=== PATIENT | female | born 1940 | race Caucasian/White ===

== ENCOUNTER → 2017-11-20 | Outpatient (CLI) | payer MEDICARE, OTHER ==
[~2017-11-20] MED LIST: ACET325; ACET325 PO; ADCIRCA PO; ADCIRCA20 MG PO; ALBU90OI INH; ALBU90OI6; ALPR.5 PO; ALPR1 PO; AMLO10 PO; ASPI325; AZIT500 PO; Acetaminophen-1 EAC1 PO; BENZ100A PO; BOSENTAN PO; BUPR150ER PO; CODACE30 PO; FLUC150A PO; FLUT220OIA INH; FLUT44OIA INH; FURO40 PO; Flovent 220 Ora12 GM INH; GUAI600T33 PO; LEVO750; LEVO750 PO; LEVSOD100 PO; LEVSOD88 PO; LORA1 PO; MULVITMINE PO; OMEP20ER PO; ONDA8 PO; Omeprazole20 M1 PO; POTA10T PO; POTA20PAC PO; POTCHL20ER PO; SERT100 PO; SIMV40 PO; SPIR25 PO; TADA10TA PO; TIOT18 INH; TRACLEER PO; WARF3 PO; WARF4 PO; ZOLP5; Zofran4 MG PO; [UNRECOGNIZED DRUG - OTHER] PO
== END ==
LOC: PLD → LAB SHORT
DX: D48.5 Neoplasm of uncertain behavior of skin (principal)
CPT/HCPCS: 88305

== ENCOUNTER 2018-01-09 11:00 | Emergency (ER) | payer MEDICARE, OTHER ==
[~2018-01-09] VITALS: Ht 157.5 cm; Wt 68.0 kg
[~2018-01-09 11:00] MED LIST changes: -ACET325 PO; -ALBU90OI INH; -ALPR1 PO; -AZIT500 PO; -Acetaminophen-1 EAC1 PO; -BENZ100A PO; -BUPR150ER PO; -Flovent 220 Ora12 GM INH; -GUAI600T33 PO; -Omeprazole20 M1 PO; -POTCHL20ER PO
[2018-01-09] MEDS ORDERED: LEVSOD88 PO (11:16)
[2018-01-09] MEDS ORDERED: SPIR25 PO (11:17)
[2018-01-09] MEDS ORDERED: POTCHL20ER PO (11:18)
[2018-01-09] MEDS ORDERED: AMLO10 PO (11:18)
[2018-01-09] MEDS ORDERED: SERT100 PO (11:19)
[2018-01-09] MEDS ORDERED: FURO40 PO (11:19)
[2018-01-09] MEDS ORDERED: Omeprazole20 M1 PO (11:20)
[2018-01-09] MEDS ORDERED: ONDA8 PO (11:20)
[2018-01-09] MEDS ORDERED: BUPR150ER PO (11:21)
[2018-01-09] MEDS ORDERED: WARF3 PO (11:21)
[2018-01-09] MEDS ORDERED: SIMV40 PO (11:22)
[2018-01-09] MEDS ORDERED: BENZ100A PO (11:22)
[2018-01-09] MEDS ORDERED: ADCIRCA20 MG PO (11:23)
[2018-01-09] MEDS ORDERED: TRACLEER PO (11:23)
[2018-01-09] MEDS ORDERED: Flovent 220 Ora12 GM INH (11:24)
[2018-01-09] MEDS ORDERED: ALBU90OI INH (11:24)
[2018-01-09 13:18] LABS: Influenza A Negative (NEGATIVE); Influenza B Negative (NEGATIVE)
[2018-01-09 13:49] LABS: Source, Urine Voided
[2018-01-09 13:56] LABS: BASOPHILS ABSOLUTE AUTO 0.03 K/mm3 (0.00-0.23); BASOPHILS PERCENT AUTO 0 % (0-2); EOSINOPHILS PERCENT AUTO 0 % (0-6); Hematocrit 36.4 % (33.0-51.0); Hemoglobin 11.3 g/dL (11.5-16.0); IMMATURE GRAN ABSOLUTE AUTO 0.03 K/mm3 (0.00-0.10); IMMATURE GRAN PERCENT AUTO 0 % (0-1); LYMPHOCYTES ABSOLUTE AUTO 0.58 K/mm3 (0.84-5.20); LYMPHOCYTES PERCENT AUTO 6 % (21-46); MONOCYTES ABSOLUTE AUTO 0.72 K/mm3 (0.16-1.47); MONOCYTES PERCENT AUTO 8 % (4-13); Mean Corpuscular HGB 27.7 pg (26.0-34.0); Mean Corpuscular Volume 89 fL (80-100); Mean Platelet Volume 10.2 fL (9.1-12.4); NEUTROPHILS ABSOLUTE AUTO 8.21 K/mm3 (1.96-9.15); NEUTROPHILS PERCENT AUTO 86 % (41-73); Platelet Count 212 K/mm3 (150-400); RDW Coefficient Variation 14.2 % (11.7-14.2); RDW Standard Deviation 46.7 fL (35.1-46.3); Red Blood Cell Count 4.08 M/mm3 (3.80-5.20); White Blood Cell Count 9.57 K/mm3 (4.00-11.30)
[2018-01-09 14:03] LABS: Appearance, Urine Clear (Clear); Bilirubin, Urine Neg (Neg); Blood, Urine 1+ (Neg); Color, Urine Yellow (P-Yellow); Glucose Qualitative, Urine Neg (Neg); Ketones, Urine Neg (Neg); Leukocyte Esterase, Urine 1+ (Neg); Nitrite, Urine Neg (Neg); Protein, Urine 1+ (Neg); Urobilinogen, Urine NORM (Normal)
[2018-01-09 14:04] LABS: Alanine Aminotransfer (ALT/SGP 14 U/L (12-78); Albumin/Globulin Ratio 0.8 (0.8-1.8); Alk Phos 87 U/L (50-136); Anion Gap 10 mmol/L (6-16); Aspartate Aminotrans (AST/SGOT 18 U/L (12-37); Bilirubin, Total 0.8 mg/dL (0.1-1.0); Blood Urea Nitrogen 12 mg/dL (8-24); Bun/Creatinine Ratio 14.3 (12.0-20.0); CO2, Blood 22 mmol/L (21-32); Calcium, Blood 8.9 mg/dL (8.5-10.1); Chloride, Blood 108 mmol/L (98-108); Creatinine, Blood 0.84 mg/dL (0.40-1.00); Glomerular Filtration Rate >60 (60-); Glucose, Blood 113 mg/dL (70-99); Potassium, Blood 3.5 mmol/L (3.5-5.5); Sodium, Blood 140 mmol/L (136-145)
[2018-01-09 14:12] LABS: Bacteria Few /hpf; Squamous Epithelial Cells Few /hpf (Few)
[2018-01-09 14:13] LABS: Transitional Epithelial Cells Few /hpf (0-Rare)
[2018-10-05] MEDS ORDERED: WARF4 PO (16:01)
[2018-10-05] MEDS ORDERED: Acetaminophen-1 EAC1 PO (16:05)
[2018-10-05] MEDS ORDERED: ALPR1 PO (16:06)
[2018-10-07] MEDS ORDERED: ACET325 PO (12:42)
[2018-10-07] MEDS ORDERED: GUAI600T33 PO (12:42)
[2018-10-07] MEDS ORDERED: AZIT500 PO (12:43)
== END 2018-01-09 15:20 | disposition home or self-care (01) ==
LOC: ER 11:00
PROVIDERS: Nurse Practitioner Family
DX: J06.9 Acute upper respiratory infection, unspecified (principal); Z79.899 Other long term (current) drug therapy; Z79.01 Long term (current) use of anticoagulants; I27.0 Primary pulmonary hypertension
CPT/HCPCS: 71046; 80053; 81001; 85025; 87086; 87804; 94640; 96361; 96374; 99283; J2405; J7030

== ENCOUNTER → 2018-02-18 | Outpatient (CLI) | payer MEDICARE, OTHER ==
[~2018-02-18] MED LIST changes: +ALBU90OI INH; +BENZ100A PO; +BUPR150ER PO; +Flovent 220 Ora12 GM INH; +Omeprazole20 M1 PO; +POTCHL20ER PO
[2018-02-18 12:15] LABS: BASOPHILS ABSOLUTE AUTO 0.06 K/mm3 (0.00-0.23); BASOPHILS PERCENT AUTO 1 % (0-2); EOSINOPHILS ABSOLUTE AUTO 0.07 K/mm3 (0.00-0.68); EOSINOPHILS PERCENT AUTO 1 % (0-6); Hematocrit 38.1 % (33.0-51.0); Hemoglobin 12.1 g/dL (11.5-16.0); IMMATURE GRAN ABSOLUTE AUTO 0.02 K/mm3 (0.00-0.10); IMMATURE GRAN PERCENT AUTO 0 % (0-1); LYMPHOCYTES ABSOLUTE AUTO 1.19 K/mm3 (0.84-5.20); LYMPHOCYTES PERCENT AUTO 15 % (21-46); MONOCYTES ABSOLUTE AUTO 0.41 K/mm3 (0.16-1.47); MONOCYTES PERCENT AUTO 5 % (4-13); Mean Corpuscular HGB 27.3 pg (26.0-34.0); Mean Corpuscular HGB Conc 31.8 g/dL (31.5-36.5); Mean Corpuscular Volume 86 fL (80-100); Mean Platelet Volume 9.8 fL (9.1-12.4); NEUTROPHILS ABSOLUTE AUTO 6.06 K/mm3 (1.96-9.15); NEUTROPHILS PERCENT AUTO 78 % (41-73); Platelet Count 271 K/mm3 (150-400); RDW Coefficient Variation 14.5 % (11.7-14.2); RDW Standard Deviation 45.6 fL (35.1-46.3); Red Blood Cell Count 4.43 M/mm3 (3.80-5.20); White Blood Cell Count 7.81 K/mm3 (4.00-11.30)
[2018-02-18 12:25] LABS: Alanine Aminotransfer (ALT/SGP 22 U/L (12-78); Albumin/Globulin Ratio 1.2 (0.8-1.8); Alk Phos 95 U/L (40-126); Anion Gap 14 mmol/L (6-16); Aspartate Aminotrans (AST/SGOT 21 U/L (12-37); Bilirubin, Total 0.5 mg/dL (0.1-1.0); Blood Urea Nitrogen 15 mg/dL (8-24); Bun/Creatinine Ratio 14.7 (12.0-20.0); CO2, Blood 23 mmol/L (21-32); Calcium, Blood 8.9 mg/dL (8.5-10.1); Chloride, Blood 107 mmol/L (98-108); Creatinine, Blood 1.02 mg/dL (0.40-1.00); Globulin, Blood 3.3 g/dL (2.2-4.0); Glomerular Filtration Rate 53 (60-); Glucose, Blood 100 mg/dL (70-99); Potassium, Blood 4.4 mmol/L (3.5-5.5); Sodium, Blood 144 mmol/L (136-145); Total Protein, Blood 7.3 g/dL (6.4-8.2)
[2018-02-18 12:27] LABS: Troponin I <0.017 ng/mL (0.000-0.040)
== END | disposition home or self-care (01) ==
LOC: LAB EV 12:07 → LAB SHORT 12:07
PROVIDERS: Physician Assistant
DX: R07.9 Chest pain, unspecified (principal)
CPT/HCPCS: 80053; 83690; 83880; 84484; 85025

== ENCOUNTER 2018-07-13 08:59 | Day surgery (SDC) | payer MEDICARE, OTHER | END 2018-07-13 13:35 | disposition home or self-care (01) | LOC: CT 08:59 | DX: C34.02 Malignant neoplasm of left main bronchus (principal); J45.909 Unspecified asthma, uncomplicated | CPT/HCPCS: 32405; 77012 ==

== ENCOUNTER 2019-01-18 12:49 | Inpatient (IN) | payer MEDICARE, OTHER ==
[~2019-01-18] VITALS: Ht 157.5 cm; Wt 65.9 kg
[~2019-01-18 12:49] MED LIST changes: +ACET325 PO; +ALPR1 PO; +AZIT500 PO; +Acetaminophen-1 EAC1 PO; +GUAI600T33 PO
[2019-01-18] MEDS ORDERED: PENVK500 PO (13:38)
[2019-01-18 13:40] LABS: BASOPHILS ABSOLUTE AUTO 0.03 K/mm3 (0.00-0.23); BASOPHILS PERCENT AUTO 0 % (0-2); EOSINOPHILS ABSOLUTE AUTO 0.03 K/mm3 (0.00-0.68); EOSINOPHILS PERCENT AUTO 0 % (0-6); Hematocrit 35.9 % (33.0-51.0); Hemoglobin 11.1 g/dL (11.5-16.0); IMMATURE GRAN ABSOLUTE AUTO 0.05 K/mm3 (0.00-0.10); IMMATURE GRAN PERCENT AUTO 1 % (0-1); LYMPHOCYTES ABSOLUTE AUTO 0.69 K/mm3 (0.84-5.20); LYMPHOCYTES PERCENT AUTO 6 % (21-46); MONOCYTES ABSOLUTE AUTO 0.65 K/mm3 (0.16-1.47); MONOCYTES PERCENT AUTO 6 % (4-13); Mean Corpuscular HGB 27.6 pg (26.0-34.0); Mean Corpuscular HGB Conc 30.9 g/dL (31.5-36.5); Mean Corpuscular Volume 89 fL (80-100); Mean Platelet Volume 10.2 fL (9.1-12.4); NEUTROPHILS ABSOLUTE AUTO 9.32 K/mm3 (1.96-9.15); NEUTROPHILS PERCENT AUTO 87 % (41-73); Platelet Count 250 K/mm3 (150-400); RDW Coefficient Variation 14.5 % (11.7-14.2); RDW Standard Deviation 47.6 fL (35.1-46.3); Red Blood Cell Count 4.02 M/mm3 (3.80-5.20); White Blood Cell Count 10.77 K/mm3 (4.00-11.30)
[2019-01-18] MEDS ORDERED: POTCHL20ER PO (13:40)
[2019-01-18 13:51] LABS: Alanine Aminotransfer (ALT/SGP 16 U/L (12-78); Albumin, Blood 3.1 g/dL (3.4-5.0); Albumin/Globulin Ratio 0.7 (0.8-1.8); Alk Phos 98 U/L (50-136); Anion Gap 8 mmol/L (6-16); Aspartate Aminotrans (AST/SGOT 18 U/L (12-37); Bilirubin, Total 0.4 mg/dL (0.1-1.0); Blood Urea Nitrogen 13 mg/dL (8-24); Bun/Creatinine Ratio 14.2 (12.0-20.0); CO2, Blood 24 mmol/L (21-32); Calcium, Blood 8.8 mg/dL (8.5-10.1); Chloride, Blood 110 mmol/L (98-108); Creatinine, Blood 0.91 mg/dL (0.40-1.00); Globulin, Blood 4.2 g/dL (2.2-4.0); Glomerular Filtration Rate >60 (60-); Glucose, Blood 104 mg/dL (70-99); Sodium, Blood 142 mmol/L (136-145); Total Protein, Blood 7.3 g/dL (6.4-8.2); Troponin I <0.015 ng/mL (0.000-0.040)
[2019-01-18 14:44] LABS: International Normalized Ratio 2.38; Prothrombin Time Results 23.3 Sec (9.7-11.5)
[2019-01-18 15:01] LABS: Influenza A Negative (NEGATIVE); Influenza B Negative (NEGATIVE)
[2019-01-18] MEDS ORDERED: ALPR1 PO (18:00)
--- NOTE | 2019-01-18 18:00 | NUR ---
PATIENT ARRIVED TO FLOOR VIA GURNEY, ABLE TO TRANSFER WITH SBA. 3LO2 TO MAINTAIN SATS. VERY ANXIOUS AND NAUSEATED, WILL MEDICATE PER EMAR. REPORTS 4/10 GENERALIZED PAIN. B/P ELEVATED, WILL GIVEN DOSE OF ALDACTONE AND REASSESS. PATIENT A/OX4, COOPERATIVE WITH CARE. ORIENTED TO ROOM, USE OF CALL LIGHT. 20G IV TO L FA WNL AND NS BOLUS INFUSING.
[2019-01-19 05:28] LABS: BASOPHILS ABSOLUTE AUTO 0.03 K/mm3 (0.00-0.23); BASOPHILS PERCENT AUTO 0 % (0-2); EOSINOPHILS PERCENT AUTO 1 % (0-6); Hematocrit 30.6 % (33.0-51.0); Hemoglobin 9.5 g/dL (11.5-16.0); IMMATURE GRAN ABSOLUTE AUTO 0.02 K/mm3 (0.00-0.10); IMMATURE GRAN PERCENT AUTO 0 % (0-1); LYMPHOCYTES ABSOLUTE AUTO 0.57 K/mm3 (0.84-5.20); LYMPHOCYTES PERCENT AUTO 8 % (21-46); MONOCYTES ABSOLUTE AUTO 0.65 K/mm3 (0.16-1.47); MONOCYTES PERCENT AUTO 9 % (4-13); Mean Corpuscular HGB 27.9 pg (26.0-34.0); Mean Corpuscular Volume 90 fL (80-100); Mean Platelet Volume 10.4 fL (9.1-12.4); NEUTROPHILS ABSOLUTE AUTO 5.64 K/mm3 (1.96-9.15); NEUTROPHILS PERCENT AUTO 81 % (41-73); Platelet Count 208 K/mm3 (150-400); RDW Coefficient Variation 14.3 % (11.7-14.2); RDW Standard Deviation 47.7 fL (35.1-46.3); White Blood Cell Count 7.01 K/mm3 (4.00-11.30)
[2019-01-19 05:46] LABS: International Normalized Ratio 2.51; Prothrombin Time Results 24.5 Sec (9.7-11.5)
--- NOTE | 2019-01-19 05:46 | NUR ---
SHIFT SUMMARY PT IS A 78 Y/O FEMALE, ADMITTED FOR PNEUMONIA. SHE IS A&O X 4. THE PT IS ON 3L OF O2 VIA NC, WHICH IS HER NORMAL HOME DOSE. SHE REPORTED GENERALIZED PAIN AND NAUSEA AND WAS MEDICATE X1 WITH PRN TYLENOL, ZOFRAN AND COMPAZINE. THE PT SLEPT OFF AND ON THROUGH THE NIGHT. VITALS REMAINED STABLE. NO OTHER ACUTE CHANGES IN PT CONDITION NOTED. WILL CONTINUE TO MONITOR AND TREAT PER EMAR.
[2019-01-19 06:05] LABS: Anion Gap 6 mmol/L (6-16); Blood Urea Nitrogen 11 mg/dL (8-24); Bun/Creatinine Ratio 12.7 (12.0-20.0); CO2, Blood 25 mmol/L (21-32); Calcium, Blood 8.4 mg/dL (8.5-10.1); Chloride, Blood 111 mmol/L (98-108); Creatinine, Blood 0.86 mg/dL (0.40-1.00); Glomerular Filtration Rate >60 (60-); Glucose, Blood 97 mg/dL (70-99); Potassium, Blood 3.4 mmol/L (3.5-5.5); Sodium, Blood 142 mmol/L (136-145)
--- NOTE | 2019-01-19 18:35 | NUR ---
PATIENT A/OX4, [place] [facility] [place] REPORTS FEELING BETTER THIS EVENING. 20G IV TO R FA WNL AND SL BETWEEN ABX. TOLERATING SMALL AMOUNT OF LOW NA+ DIET. MEDICATING WITH ZOFRAN TO TREAT NAUSEA. ANXIOUS AT TIMES, ATIVAN GIVEN X2 THIS SHIFT TO TREAT. VSS. LUNGS CLEAR/DIM, 3LO2 TO MAINTAIN SATS.
[2019-01-20 04:51] LABS: International Normalized Ratio 3.43; Prothrombin Time Results 32.5 Sec (9.7-11.5)
--- NOTE | 2019-01-20 06:38 | NUR ---
SHIFT SUMMARY PT IS A 78 Y/O FEMALE, ADMITTED FOR PNEUMONIA. SHE REPORTED THAT SHE IS FEELING BETTER COMPARED TO THE PREVIOUS NIGHT, WITH NO COMPLAINTS OF PAIN OR NAUSEA, BUT SHE DID HAVE A COUGH DURING THE NIGHT THAT WAS TREATED WITH SCHEDULED COUGH MEDICATION. SHE SLEPT OFF AND ON THROUGH THE NIGHT. VITALS REMAINED STABLE. NO OTHER ACUTE CHANGES IN PT CONDITION NOTED. WILL CONTINUE TO MONITOR AND TREAT PER EMAR.
[2019-01-20] MEDS ORDERED: WARF3 PO (10:04)
[2019-01-20] MEDS ORDERED: HYDROCODONE-CHLO5 ML PO (10:07)
[2019-01-20] MEDS ORDERED: AZIT500 PO (10:08)
[2019-01-20] MEDS ORDERED: SENN187 PO (10:08)
[2019-01-20] MEDS ORDERED: SACC250C PO (10:08)
[2019-01-20] MEDS ORDERED: CEFU500T30 PO (10:09)
== END 2019-01-20 11:55 | disposition home or self-care (01) | DRG 194 ==
LOC: ER 12:49 → MEDS 16:56
PROVIDERS: Emergency Medicine; Internal Medicine; Physician Assistant; ADMIT Internal Medicine
DX: J18.1 Lobar pneumonia, unspecified organism (principal); C34.32 Malignant neoplasm of lower lobe, left bronchus or lung; R04.2 Hemoptysis; E44.0 Moderate protein-calorie malnutrition; E87.6 Hypokalemia; I27.20 Pulmonary hypertension, unspecified; Z79.01 Long term (current) use of anticoagulants; E03.9 Hypothyroidism, unspecified; F32.9 Major depressive disorder, single episode, unspecified; F41.9 Anxiety disorder, unspecified; E78.5 Hyperlipidemia, unspecified; I10 Essential (primary) hypertension; K21.9 Gastro-esophageal reflux disease without esophagitis; Z99.81 Dependence on supplemental oxygen; Z66 Do not resuscitate; Z68.24 Body mass index [BMI] 24.0-24.9, adult
CPT/HCPCS: 36415; 71046; 71250; 80048; 80053; 83605; 84145; 84484; 85025; 85610; 87040; 87804; 93005; 93010; 94640; 94760; 96365; 96367; 96375; 99285-25; J0456; J0696; J0780; J2405; J7030; J7050; J7120

== ENCOUNTER 2019-07-09 18:43 | Observation (INO) | payer MEDICARE, OTHER ==
[~2019-07-09] VITALS: Ht 160 cm; Wt 64.0 kg
[~2019-07-09 18:43] MED LIST changes: +CEFU500T30 PO; +Coumadin4 MG PO; +HYDROCODONE-CHLO5 ML PO; +PENVK500 PO; +SACC250C PO; +SENN187 PO; +Synthroid88 MCG PO
[2019-07-09 19:55] LABS: BASOPHILS ABSOLUTE AUTO 0.05 K/mm3 (0.00-0.23); BASOPHILS PERCENT AUTO 1 % (0-2); EOSINOPHILS ABSOLUTE AUTO 0.09 K/mm3 (0.00-0.68); EOSINOPHILS PERCENT AUTO 1 % (0-6); Hematocrit 35.2 % (33.0-51.0); Hemoglobin 10.8 g/dL (11.5-16.0); IMMATURE GRAN ABSOLUTE AUTO 0.03 K/mm3 (0.00-0.10); IMMATURE GRAN PERCENT AUTO 0 % (0-1); LYMPHOCYTES ABSOLUTE AUTO 1.01 K/mm3 (0.84-5.20); LYMPHOCYTES PERCENT AUTO 12 % (21-46); MONOCYTES PERCENT AUTO 7 % (4-13); Mean Corpuscular HGB 25.5 pg (26.0-34.0); Mean Corpuscular HGB Conc 30.7 g/dL (31.5-36.5); Mean Platelet Volume 10.4 fL (9.1-12.4); NEUTROPHILS ABSOLUTE AUTO 6.66 K/mm3 (1.96-9.15); NEUTROPHILS PERCENT AUTO 79 % (41-73); Platelet Count 289 K/mm3 (150-400); RDW Coefficient Variation 14.9 % (11.7-14.2); RDW Standard Deviation 45.3 fL (35.1-46.3); Red Blood Cell Count 4.23 M/mm3 (3.80-5.20); White Blood Cell Count 8.44 K/mm3 (4.00-11.30)
[2019-07-09 19:59] LABS: Mean Corpuscular Volume 83 fL (80-100)
[2019-07-09 21:17] LABS: Alanine Aminotransfer (ALT/SGP 13 U/L (12-78); Albumin, Blood 3.2 g/dL (3.4-5.0); Albumin/Globulin Ratio 0.6 (0.8-1.8); Alk Phos 81 U/L (50-136); Anion Gap 6 mmol/L (6-16); Aspartate Aminotrans (AST/SGOT 24 U/L (12-37); Bilirubin, Total 0.3 mg/dL (0.1-1.0); Blood Urea Nitrogen 10 mg/dL (8-24); Bun/Creatinine Ratio 9.1 (12.0-20.0); CO2, Blood 22 mmol/L (21-32); Calcium, Blood 9.2 mg/dL (8.5-10.1); Chloride, Blood 113 mmol/L (98-108); Globulin, Blood 5.1 g/dL (2.2-4.0); Glomerular Filtration Rate 51 (60-); Glucose, Blood 98 mg/dL (70-99); Potassium, Blood 4.5 mmol/L (3.5-5.5); Sodium, Blood 141 mmol/L (136-145); Total Protein, Blood 8.3 g/dL (6.4-8.2); Troponin I <0.015 ng/mL (0.000-0.040)
[2019-07-09 21:21] LABS: International Normalized Ratio 1.13; Prothrombin Time Results 11.8 Sec (9.7-11.5)
[2019-07-09 21:40] LABS: Source, Urine Clean Catch
[2019-07-09 21:44] LABS: Bilirubin, Urine Neg (Neg); Blood, Urine Neg (Neg); Glucose Qualitative, Urine Neg (Neg); Ketones, Urine Neg (Neg); Leukocyte Esterase, Urine Neg (Neg); Nitrite, Urine Neg (Neg); Protein, Urine Neg (Neg); Urobilinogen, Urine NORM (Normal)
[2019-07-09 21:47] LABS: Appearance, Urine Clear (Clear); Color, Urine Yellow (P-Yellow)
[2019-07-09] MEDS ORDERED: TRACLEER PO (21:59)
[2019-07-09] MEDS ORDERED: TAGRISSO80 MG PO (21:59)
[2019-07-09] MEDS ORDERED: FLUTICASONE-SA1 EAC4 INH (22:00)
[2019-07-09] MEDS ORDERED: Simvastatin40 MG PO (22:01)
[2019-07-09] MEDS ORDERED: ADCIRCA20 MG PO (22:02)
[2019-07-09] MEDS ORDERED: ONDA4 PO (22:03)
[2019-07-09] MEDS ORDERED: PRENATAL TABLE1 EAC2 PO (22:03)
--- NOTE | 2019-07-09 23:20 | NUR ---
Transfer report from [facility] GENERAL MAINTENANCE HELPER on PT with reported bilat stage 4 lung CA who has 10 days Nausea and diarrhea. CO chest and abd pain. PT concerned about pneumonia, hx of multiple pneumonia. Pulmonary hypertension and will be admitted on Tele obs status. Await admission
[2019-07-10] MEDS ORDERED: Alprazolam1 MG PO (00:31)
[2019-07-10] MEDS ORDERED: OMEPRAZOLE MAGN20 M1 PO (00:33)
[2019-07-10] MEDS ORDERED: Tessalon Perle100 MG PO (00:35)
[2019-07-10] MEDS ORDERED: ACET500 PO (00:38)
[2019-07-10] MEDS ORDERED: PROBIOTIC1 EAC6 PO (00:40)
[2019-07-10 01:28] LABS: BASOPHILS ABSOLUTE AUTO 0.05 K/mm3 (0.00-0.23); BASOPHILS PERCENT AUTO 1 % (0-2); EOSINOPHILS ABSOLUTE AUTO 0.04 K/mm3 (0.00-0.68); EOSINOPHILS PERCENT AUTO 1 % (0-6); Hemoglobin 9.7 g/dL (11.5-16.0); IMMATURE GRAN ABSOLUTE AUTO 0.02 K/mm3 (0.00-0.10); IMMATURE GRAN PERCENT AUTO 0 % (0-1); LYMPHOCYTES ABSOLUTE AUTO 0.78 K/mm3 (0.84-5.20); LYMPHOCYTES PERCENT AUTO 10 % (21-46); MONOCYTES PERCENT AUTO 8 % (4-13); Mean Corpuscular HGB 26.1 pg (26.0-34.0); Mean Corpuscular HGB Conc 31.3 g/dL (31.5-36.5); Mean Corpuscular Volume 83 fL (80-100); Mean Platelet Volume 10.1 fL (9.1-12.4); NEUTROPHILS ABSOLUTE AUTO 6.32 K/mm3 (1.96-9.15); NEUTROPHILS PERCENT AUTO 81 % (41-73); Platelet Count 254 K/mm3 (150-400); RDW Coefficient Variation 14.8 % (11.7-14.2); RDW Standard Deviation 45.1 fL (35.1-46.3); Red Blood Cell Count 3.72 M/mm3 (3.80-5.20); White Blood Cell Count 7.81 K/mm3 (4.00-11.30)
[2019-07-10 01:44] LABS: Bun/Creatinine Ratio 10.3 (12.0-20.0); Calcium, Blood 8.8 mg/dL (8.5-10.1); Creatinine, Blood 0.97 mg/dL (0.40-1.00); Potassium, Blood 3.9 mmol/L (3.5-5.5)
[2019-07-10 01:45] LABS: International Normalized Ratio 1.14; Prothrombin Time Results 11.9 Sec (9.7-11.5)
--- NOTE | 2019-07-10 02:24 | NUR ---
79 year old Female and has no Children lives alone outside [place] and had dx of lung cancer greater than 6 years ago, had radiation and chemo in past and was in remission but 2 months ago she was told she has bilat stage 4 lung cancer and PT see's DR Christopher Crenshaw. She was on oral chemo drug x 1 month and has been unable to tolerate oral intake or manage home meds for at least 5 days. HAs DNR status, has polst or advanced directive. Has friend who is supportive, but PT says she is unable to go on Hospice since she lives alone. She has pulmonary HTN x many years since and has not been able to coordinate taking her meds. She is weak and nauseated. Hx of anxiety with 1 mg xanax use at hs as recent as 07/08/[address] Encarnacion of need for rx to treat nausea and pain and anxiety. Negative troponin x 2 co chest or abd pain retching unable to tolerate oral meds. DR tellez review rx.
--- NOTE | 2019-07-10 03:21 | NUR ---
PT did not bring her home meds for pulmonary hypertension, she did bring the oral chemo for her lung cancer but she says she has decided she doesn't want to continue use. DR MELENDEZ updated on anxiety and PT's request for more IV fluids. Home dose xanax 1 mg po at HS obtained and will start tonight if PT will take oral, She refused her coumadin and med for high cholesterol. Will give liter of lactated ringers. Called Pharmacy about PT not bringing home meds and she has no one to bring rx from home unless her neighbor in [place] is able to bring later today. She did call neighbor to let her dog out to go to the bathroom. Gave antiemetic and will give antianxiety rx. Continues on oxygen 3 l nc, weak and need assist to ambulate to bathroom. wants to drink but not currently taking any oral without nausea.
--- NOTE | 2019-07-10 11:06 | NUR ---
Echocardiogram completed
--- NOTE | 2019-07-10 16:23 | NUR ---
Initial Visit: Pt admitted for chest pain. History of lung cancer, hypothyroidism, depression, anxiety, pulmonary hypertension. She sees Dr. Crenshaw for treatment of cancer. Pt is alert, oriented, anxious. She appears very uncomfortable in the bed. She is continuously moving to adjust herself and is in constant motion during the time it takes for palliative assessment. She reports that she lives independently. Her a little over 2 years ago. She has struggled to pay bills, due to her low income and difficulty learning how to manage money since her handled finances. She has a sister in [place], [place]. She was just here for a visit. Pt was never able to have children, so her sister is the family that she has. She has attentive neighbors and some friends. Up until a month ago, she was able to do her own showers and care. She reports that she hasn't been able to take a shower in about a month. She eats TV dinners. She is requesting help to change her sheets and fill her medication boxes; reports getting very confused about what to take at times. She does continue to drive, and does not think this is unsafe. She is able to walk without devices. She is unable to do any house work. She gets easily short of breath. She has [address] acres [address] land with a home on it, she has a medium sized dog. She expresses desire to have some help at home. "Even just once a month to come help me change my sheets." Reviewed advanced care planning. Pt sees Dr. Crenshaw for cancer treatments, however, she has stated that her oral medication is causing her extreme diarrhea and vomiting and she doesn't think she wants to take it anymore. Her understanding of her disease is that it will not cure her, but will limit the size of her tumors and prevent it from "spreading," per pt. She declines hospice care at this time. She has a misunderstanding of hospice services. She believed it to be 24/7 care. Explained nurse visits, bath aid visits and support of nurses by phone and/or visit after hours if she needs it. She is so far not interested in this. She also states, "I feel bad, because Dr. Crenshaw was so enthusiastic about this new medication, but I cannot take it anymore because of what it does to me." Pt demonstrates poor understanding of her disease process and progression of disease. Review of medications. She doesn't have pain medication on her profile, and she is asking for some at this time. Reviewed with nurse, Susan. She states that pt is intermittently a little confused. Called day care home provider, Alexandra. Updated on pt's report of difficulties at home. Pt is asking for assistance to help set up caregivers. Evidently, pt has told Alexandra slightly different information that she has told this RN. Alexandra agrees to go speak with her again. Pt has reported several insurance coverage plans to chaplain Manuela. This may not be known to Alexandra. It is pt's hope that there will be some sort of benefit or help for her to assist with caregiving. Call placed to Dr. Harris. Reported pt's pain, with request for medication. She will review chart to see what pt takes at home and place orders. Will remain available. Pt has known stage IV lung cancer. KPS 60% PPS 60% Will follow pt for symptom managment and to discuss advance care planning.
--- NOTE | 2019-07-10 18:36 | NUR ---
PATIENT HAS SLEPT . SHE IS ALERT AND ORIENTED. HAS BEEN NAUSEATED MOST OF SHIFT. MEDICATED PER EMAR. PALLATIVE CARE INVOLVED. PATIENT ABLE TO EXPRESS ANY CONCERNS.
--- NOTE | 2019-07-10 18:38 | NUR ---
Spiritual Care initial note: Mrs. Red has lived alone in [place] for many years. Her has passed. No children she admits she has been having trouble with ADLs. She has also decided to "stop taking the cancer pills" and says she is ready to . She has been estranged from Sabianist Jewish for many decades, but wants to return. She became tearful when I told her she has been absolved of the sins that kept her away. Father linda provided this for her this afternoon. She wants to return to her golden. She has two good friends in the [place] community, but they both work and are not available at all times. She is very interested in hospice/home health/care-givers. Conferenced with Palliative Care. Lizette was deeply appreciaitive of assurance of care, reconcilliation with jew, and prayer. Business Analysis Analyst Services will remain available.
[2019-07-11 00:35] LABS: Adenovirus F 40/41 Not Detected (NOT DETECT); Astrovirus Not Detected (NOT DETECT); Campylobacter Sp Not Detected (NOT DETECT); Cryptosporidium Not Detected (NOT DETECT); Cyclospora Cayetanensis Not Detected (NOT DETECT); E. Coli O157 Not Detected (NOT DETECT); Entamoeba Histolytica Not Detected (NOT DETECT); Enteroaggregative E. coli-EAEC Not Detected (NOT DETECT); Enteropathogenic E. coli-EPEC Not Detected (NOT DETECT); Enterotoxigenic E. coli-ETEC Not Detected (NOT DETECT); Giardia Lamblia Not Detected (NOT DETECT); Norovirus GI/GII Not Detected (NOT DETECT); Plesiomonas Shigelloides Not Detected (NOT DETECT); Rotavirus A Not Detected (NOT DETECT); Salmonella Sp Not Detected (NOT DETECT); Sapovirus Not Detected (NOT DETECT); Shiga Toxin-prod E. coli-STEC Not Detected (NOT DETECT); Shigella/Enteroin E. coli-EIEC Not Detected (NOT DETECT); Vibrio Cholerae Not Detected (NOT DETECT); Vibrio Sp Not Detected (NOT DETECT); Yersinia Enterocolitica Not Detected (NOT DETECT)
--- NOTE | 2019-07-11 05:07 | NUR ---
79 year old female who lives alone in [place] was admitted with NVD and continues with diarrhea. Stool sample sent for GI panel and negative pathology. PT continues with poor oral intake. ate 5% snack after 0% dinner. PT is nonsmoker with stage 4 lung cancer bilat. Has home oxygen use at 3 to 4 l nc. On tele monitor SR with BBB. DX of pulmonary HTN and off those meds since 07/05/19 She was medicated x 1 with pheneragan 25 mg IV with helpful effect on nausea.She has Pallative care consult as well as social service consult to assess support for dc. PT came in EMS and needs a ride home to [place]. She has no family in area, Sister in [place]. Says she had Spouse on Hospice 2 years ago and can't be on Hospice due to lack of support system. HAs a neighbor feeding her dog and friend who is supportive. Very poor nutrition after starting on oral chemo to tx lung cancer. She says no more oral chemo due to NVD and unable to tolerate oral intake. Support offered
[2019-07-11 05:26] LABS: International Normalized Ratio 1.53; Prothrombin Time Results 15.6 Sec (9.7-11.5)
[2019-07-11 05:30] LABS: Anion Gap 7 mmol/L (6-16); Blood Urea Nitrogen 11 mg/dL (8-24); Bun/Creatinine Ratio 8.9 (12.0-20.0); CO2, Blood 27 mmol/L (21-32); Calcium, Blood 8.9 mg/dL (8.5-10.1); Chloride, Blood 106 mmol/L (98-108); Creatinine, Blood 1.23 mg/dL (0.40-1.00); Glomerular Filtration Rate 45 (60-); Glucose, Blood 95 mg/dL (70-99); Phosphorus, Blood 4.6 mg/dL (2.5-4.9); Potassium, Blood 3.7 mmol/L (3.5-5.5); Sodium, Blood 140 mmol/L (136-145)
--- NOTE | 2019-07-11 14:10 | NUR ---
Pt. is doing fine and happy offgered prayers and support.
[2019-07-11 15:47] LABS: Bun/Creatinine Ratio 14.6 (12.0-20.0); Calcium, Blood 8.9 mg/dL (8.5-10.1); Creatinine, Blood 1.23 mg/dL (0.40-1.00); Potassium, Blood 3.6 mmol/L (3.5-5.5)
[2019-07-11] MEDS ORDERED: PROM25 PO (16:45)
--- NOTE | 2019-07-11 18:27 | NUR ---
PT DISCHARGED THE PT HAS BEEN GIVEN DC ORDERS, THE PT VERBALIZED UNDERSTANDING OF THE DC ORDER, THE PTS PRESCRIPTION WAS FAXED TO [facility] REQUESTED, THE PT APPEARS TO BE BREATHING EASILY AT THIS TIME ON O2 @ 3L/MIN, PT TRANSFERED VIA WHEELCHAIR ACCOMPANIED BY A MONICA AND STAFF, FOLLOW UP APPOINTMENT WAS MADE FOR THE PT
== END 2019-07-11 18:38 | disposition home or self-care (01) ==
LOC: ER 18:43 → MEDS 18:44 → ENPENDDIS 07-11 16:12 → MEDS 07-11 18:38
PROVIDERS: Emergency Medicine; Internal Medicine; Physician Assistant; ADMIT Hospitalist
DX: K21.9 Gastro-esophageal reflux disease without esophagitis (principal); K29.70 Gastritis, unspecified, without bleeding; R19.7 Diarrhea, unspecified; F41.9 Anxiety disorder, unspecified; E03.9 Hypothyroidism, unspecified; F32.9 Major depressive disorder, single episode, unspecified; C34.32 Malignant neoplasm of lower lobe, left bronchus or lung; E78.5 Hyperlipidemia, unspecified; I27.20 Pulmonary hypertension, unspecified; Z92.3 Personal history of irradiation; Z79.01 Long term (current) use of anticoagulants
CPT/HCPCS: 0097U; 36415; 71046; 80048; 80053; 80069; 81003; 83690; 83880; 84145; 84484; 85025; 85610; 93005; 93010; 93306; 94640; 94760; 96361; 96372; 96374; 96375; 96376; 97116; 97162; 97530; 99285-25; C9113; G0378; J1170; J1650; J2405; J2550; J7120; P9612

== ENCOUNTER → 2020-04-07 | Outpatient (CLI) | payer MEDICARE, OTHER ==
[~2020-04-07] MED LIST changes: +ACET500 PO; +Alprazolam1 MG PO; +FLUTICASONE-SA1 EAC4 INH; +OMEPRAZOLE MAGN20 M1 PO; +ONDA4 PO; +PRENATAL TABLE1 EAC2 PO; +PROBIOTIC1 EAC6 PO; +PROM25 PO; +Simvastatin40 MG PO; +TAGRISSO80 MG PO; +Tessalon Perle100 MG PO
== END | disposition home or self-care (01) ==
LOC: PLD 15:28 → LAB SHORT 15:28
DX: L98.8 Other specified disorders of the skin and subcutaneous tissue (principal)
CPT/HCPCS: 88305; 88312

== ENCOUNTER 2021-04-29 10:42 | Inpatient (IN) | payer MEDICARE, OTHER ==
[~2021-04-29] VITALS: Ht 160 cm; Wt 63.5 kg
[2021-04-29 11:42] LABS: Hematocrit 37.9 % (33.0-51.0); Hemoglobin 11.7 g/dL (11.5-16.0); Mean Corpuscular HGB 26.6 pg (26.0-34.0); Mean Corpuscular HGB Conc 30.9 g/dL (31.5-36.5); Mean Corpuscular Volume 86 fL (80-100); Mean Platelet Volume 10.1 fL (9.1-12.4); Platelet Count 274 K/mm3 (150-400); RDW Coefficient Variation 18.3 % (11.7-14.2)
[2021-04-29 12:00] LABS: Alanine Aminotransfer (ALT/SGP 17 U/L (12-78); Albumin, Blood 2.4 g/dL (3.4-5.0); Albumin/Globulin Ratio 0.7 (0.8-1.8); Alk Phos 51 U/L (50-136); Anion Gap 8 mmol/L (6-16); Aspartate Aminotrans (AST/SGOT 15 U/L (12-37); Bilirubin, Total 0.2 mg/dL (0.1-1.0); Blood Urea Nitrogen 33 mg/dL (8-24); Bun/Creatinine Ratio 14.7 (12.0-20.0); CO2, Blood 17 mmol/L (21-32); Calcium, Blood 7.8 mg/dL (8.5-10.1); Chloride, Blood 120 mmol/L (98-108); Creatinine, Blood 2.25 mg/dL (0.40-1.00); Globulin, Blood 3.5 g/dL (2.2-4.0); Glomerular Filtration Rate 22 (60-); Glucose, Blood 112 mg/dL (70-99); Potassium, Blood 3.4 mmol/L (3.5-5.5); Sodium, Blood 145 mmol/L (136-145); Total Protein, Blood 5.9 g/dL (6.4-8.2); Troponin I <0.015 ng/mL (0.000-0.040)
[2021-04-29 12:25] LABS: Source, Urine Clean Catch
[2021-04-29 12:36] LABS: Appearance, Urine Clear (Clear); Bilirubin, Urine Neg (Neg); Blood, Urine Neg (Neg); Color, Urine Yellow (P-Yellow); Glucose Qualitative, Urine Neg (Neg); Ketones, Urine Neg (Neg); Leukocyte Esterase, Urine Neg (Neg); Nitrite, Urine Neg (Neg); Protein, Urine 2+ (Neg); Urobilinogen, Urine NORM (Normal)
[2021-04-29 12:39] LABS: BAND PERCENT MAN 9 % (0-8); BASOPHILS PERCENT MAN 0 % (0-2); EOSINOPHILS PERCENT MAN 0 % (0-6); LYMPHOCYTES ABSOLUTE MAN 0.58 K/mm3 (0.84-5.20); LYMPHOCYTES PERCENT MAN 12 % (21-46); MONOCYTES ABSOLUTE MAN 0.29 K/mm3 (0.16-1.47); MONOCYTES PERCENT MAN 6 % (4-13); NEUTROPHILS ABSOLUTE MAN 4.01 K/mm3 (1.96-9.15); SEG NEUTROPHILS PERCENT MAN 73 % (41-73); TOTAL CELLS COUNTED 100
[2021-04-29 13:03] LABS: Renal Epithelial Rare /hpf (0-Rare); Squamous Epithelial Cells Mod /hpf (Few); Transitional Epithelial Cells Few /hpf (0-Rare)
[2021-04-29 13:04] LABS: White Blood Cells, Urine 0-2 /hpf (0-5)
[2021-04-29 13:05] LABS: Bacteria Not Seen /hpf; Red Blood Cells, Urine Not Seen /hpf (0-2)
[2021-04-29] MEDS ORDERED: OPSUMIT10 MG PO (17:20)
[2021-04-29] MEDS ORDERED: SPIRONOLACTONE25 MG PO (17:21)
[2021-04-29] MEDS ORDERED: FUROSEMIDE40 MG PO (17:21)
[2021-04-29] MEDS ORDERED: Prednisone10 MG PO (17:21)
[2021-04-29] MEDS ORDERED: CLON.1 PO (17:21)
[2021-04-29] MEDS ORDERED: Potassium Chlo20 ME1 PO (17:22)
[2021-04-29] MEDS ORDERED: AMLODIPINE BESY10 MG PO (17:22)
[2021-04-29] MEDS ORDERED: FLUTICASONE-SA1 EAC9 INH (17:24)
[2021-04-29 18:07] LABS: International Normalized Ratio 1.18; Prothrombin Time Results 12.6 Sec (9.7-11.5)
--- NOTE | 2021-04-29 19:33 | NUR ---
PT ARRIVED TO THE MEDICAL FLOOR FROM THE ER, A/OX3, UP WITH MINIMAL ASSIST TO THE BED, THE PT REPORTED NAUSEA AND ACID REFLUX, ZOFRAN IV WAS GIVEN, THE PT DENIED PAIN AT THIS TIME, THE PT WAS ORIENTED TO THE ROOM LAYOUT AND CALL SYSTEM, CALL LIGHT IN REACH, REPORT GIVEN TO JANNY RN
--- NOTE | 2021-04-30 04:38 | NUR ---
SHIFT SUMMARY PT HAS RESTED MOST OF THE NIGHT SINCE ADMISSION. PT NAUSEA HAS BEEN WELL CONTROLLED THIS SHIFT AND SHE HAS ONLY NEEDED SOMETHING FOR NAUSEA X1. PT HAS BEEN TOLERATING PO INTAKE. O2 IN PLACE AT 2L. RES E/U. TELE IN PLACE WITH NSR. VITALS STABLE. BED IN LOWEST POSITION, CALL LIGHT WITHIN REACH.
[2021-04-30 05:43] LABS: Hematocrit 33.5 % (33.0-51.0); Hemoglobin 10.5 g/dL (11.5-16.0); Mean Corpuscular HGB 26.9 pg (26.0-34.0); Mean Corpuscular HGB Conc 31.3 g/dL (31.5-36.5); Mean Corpuscular Volume 86 fL (80-100); Mean Platelet Volume 9.7 fL (9.1-12.4); Platelet Count 237 K/mm3 (150-400); RDW Coefficient Variation 18.3 % (11.7-14.2); RDW Standard Deviation 57.5 fL (35.1-46.3); White Blood Cell Count 4.84 K/mm3 (4.00-11.30)
[2021-04-30 05:53] LABS: International Normalized Ratio 1.23; Prothrombin Time Results 13.1 Sec (9.7-11.5)
[2021-04-30 05:59] LABS: Bun/Creatinine Ratio 14.5 (12.0-20.0); Calcium, Blood 7.8 mg/dL (8.5-10.1); Creatinine, Blood 2.14 mg/dL (0.40-1.00); Potassium, Blood 3.4 mmol/L (3.5-5.5)
[2021-04-30 13:02] LABS: Adenovirus F 40/41 Not Detected (NOT DETECT); Astrovirus Not Detected (NOT DETECT); Campylobacter Sp Not Detected (NOT DETECT); Cryptosporidium Not Detected (NOT DETECT); Cyclospora Cayetanensis Not Detected (NOT DETECT); E. Coli O157 Not Detected (NOT DETECT); Entamoeba Histolytica Not Detected (NOT DETECT); Enteroaggregative E. coli-EAEC Not Detected (NOT DETECT); Enteropathogenic E. coli-EPEC Not Detected (NOT DETECT); Enterotoxigenic E. coli-ETEC Not Detected (NOT DETECT); Giardia Lamblia Not Detected (NOT DETECT); Norovirus GI/GII Not Detected (NOT DETECT); Plesiomonas Shigelloides Not Detected (NOT DETECT); Rotavirus A Not Detected (NOT DETECT); Salmonella Sp Not Detected (NOT DETECT); Sapovirus Not Detected (NOT DETECT); Shiga Toxin-prod E. coli-STEC Not Detected (NOT DETECT); Shigella/Enteroin E. coli-EIEC Not Detected (NOT DETECT); Vibrio Cholerae Not Detected (NOT DETECT); Vibrio Sp Not Detected (NOT DETECT); Yersinia Enterocolitica Not Detected (NOT DETECT)
--- NOTE | 2021-04-30 18:18 | NUR ---
PT IS A/OX4, PLEASANT AND COOPERATIVE, THE PT IS UP WITH MINIMAL ASSIST, THE PT APPEARS TO BE BREATHING EASILY O2 AT 2L/MIN AT HOME, THE PT HAS BEEN NAUSEATED T/O THE DAY NO EMISIS REPORTED, THE PT WAS MEDICATED FOR NAUSEA T/O THE DAY, PT WAS ABLE TO EAT SMALL AMOUNTS OF HER CLEAR LIQUID DIET, STOOL SAMPLE WAS COLLECTED TODAY AND SENT TO THE LAB, CALL LIGHT IN REACH, WILL CONTINUE TO MONITOR AND ASSESS FOR CHANGES
[2021-05-01 05:11] LABS: International Normalized Ratio 1.57; Prothrombin Time Results 16.5 Sec (9.7-11.5)
--- NOTE | 2021-05-01 06:29 | NUR ---
SOFTWARE DESIGN ENGINEER SUMMARY PT A/O X4. DENIES PAIN, SOB. SLEPT WELL TONIGHT. MEDICATED ONCE OVERNIGHT FOR NAUSEA. VSS. CONTINUES TO BE ON 3L O2 VIA NC SATTING IN THE HIGH 90'S. TELE BEEN RUNNING SINUS WITH BBB. VITALS STABLE. CALL LIGHT WITHIN REACH, BED ALARM ON. WILL CONTINUE TO MONIOTR,
[2021-05-01 08:49] LABS: Albumin, Blood 2.2 g/dL (3.4-5.0); Anion Gap 7 mmol/L (6-16); Blood Urea Nitrogen 22 mg/dL (8-24); Bun/Creatinine Ratio 10.7 (12.0-20.0); CO2, Blood 16 mmol/L (21-32); Calcium, Blood 7.6 mg/dL (8.5-10.1); Chloride, Blood 120 mmol/L (98-108); Creatinine, Blood 2.06 mg/dL (0.40-1.00); Glomerular Filtration Rate 23 (60-); Glucose, Blood 105 mg/dL (70-99); Phosphorus, Blood 3.7 mg/dL (2.5-4.9); Sodium, Blood 143 mmol/L (136-145)
--- NOTE | 2021-05-01 18:28 | NUR ---
SHIFT SUMMARY. A&OX4, SBA TO BATHROOM SECONDARY TO LINES, PLEASANAT AND COOPERATIVE WITH CARE. PT C/O FRONTAL SCHRADER PAIN THIS AM, PAIN RESOLVED WITH ONE DOSE OF APAP. PT REPORTED NAUSEA THREE TIMES THIS SHIFT, NAUSEA MANAGED WELL WITH CURRENT ORDERS, PT IS HOPING TO ADVANCE DIET TOMORROW SHE REPORTS INCREASING APPETITIE. PT REPORTS DIARRHEA HAS SLOWED DOWN SIGNIFICANTLY AFTER TWO DOSES OF IMODIUM. NO OTHER CHANGES OR CONCERNS.
[2021-05-02 04:52] LABS: Prothrombin Time Results 46.4 Sec (9.7-11.5)
[2021-05-02 04:54] LABS: Albumin, Blood 2.2 g/dL (3.4-5.0); Anion Gap 9 mmol/L (6-16); Blood Urea Nitrogen 17 mg/dL (8-24); Bun/Creatinine Ratio 8.2 (12.0-20.0); CO2, Blood 14 mmol/L (21-32); Calcium, Blood 7.5 mg/dL (8.5-10.1); Chloride, Blood 119 mmol/L (98-108); Creatinine, Blood 2.08 mg/dL (0.40-1.00); Glomerular Filtration Rate 23 (60-); Glucose, Blood 104 mg/dL (70-99); Phosphorus, Blood 4.2 mg/dL (2.5-4.9); Potassium, Blood 3.3 mmol/L (3.5-5.5); Sodium, Blood 142 mmol/L (136-145)
[2021-05-02 05:04] LABS: International Normalized Ratio 4.69
--- NOTE | 2021-05-02 06:24 | NUR ---
0615 PT INR- 4.69. DR PIZARRO CALLED AND OREDERED TO HOLD COUMADIN.
--- NOTE | 2021-05-02 06:58 | NUR ---
SUMMARY PT HAD NO NEW ISSUES NOTED. PT SLEPT T/O SHIFT. PT INR CAME BACK HIGH AND DR PIZARRO ORDERED TO HOLD COUMADIN. PT CURRENTLY SLEEPING AND IN NO DISTRESS. CALL LIGHT IN REACH.
--- NOTE | 2021-05-02 18:36 | NUR ---
SHIFT SUMMARY. A&OX4, SBA TO BATHROOM SECONDARY TO LINES. CONTINUES WITH BASE LINE 3L O2 NC, LUNGS CLEAR. PT REPORTED HEARTBURN TYPE DISCOMFORT WITH NAUSEA THIA AM WHILE DR. MCLAUGHLIN WAS ROUNDING, SHE ORDERED PROTONIX IV AND PRN TUBS, PT REPORTED IMPROVEMENT OF SYMPTOMS POST ADMINISTRATION. PT RECIEVED SHOWER TODAY WITH ASSISTANCE OF CYLINDER MACHINE OPERATOR PULP DRIER. NO OTHER CHANGES OR CONCERNS.
[2021-05-03 05:04] LABS: Hematocrit 27.2 % (33.0-51.0); Hemoglobin 8.5 g/dL (11.5-16.0); Mean Corpuscular HGB 26.1 pg (26.0-34.0); Mean Corpuscular HGB Conc 31.3 g/dL (31.5-36.5); Mean Corpuscular Volume 83 fL (80-100); Platelet Count 237 K/mm3 (150-400); RDW Coefficient Variation 18.1 % (11.7-14.2); RDW Standard Deviation 55.2 fL (35.1-46.3); Red Blood Cell Count 3.26 M/mm3 (3.80-5.20); White Blood Cell Count 6.33 K/mm3 (4.00-11.30)
[2021-05-03 05:26] LABS: Albumin, Blood 2.1 g/dL (3.4-5.0); Anion Gap 6 mmol/L (6-16); Blood Urea Nitrogen 17 mg/dL (8-24); CO2, Blood 17 mmol/L (21-32); Calcium, Blood 7.4 mg/dL (8.5-10.1); Chloride, Blood 116 mmol/L (98-108); Creatinine, Blood 2.13 mg/dL (0.40-1.00); Glomerular Filtration Rate 22 (60-); Glucose, Blood 91 mg/dL (70-99); Phosphorus, Blood 3.9 mg/dL (2.5-4.9); Potassium, Blood 3.3 mmol/L (3.5-5.5); Sodium, Blood 139 mmol/L (136-145)
[2021-05-03 06:14] LABS: Prothrombin Time Results >90.0 Sec (9.7-11.5)
[2021-05-03 06:17] LABS: International Normalized Ratio >10.00
--- NOTE | 2021-05-03 06:36 | NUR ---
SUMMARY PT HAD NO ISSUE T/O NIGHT. PT SLEPT WELL. PT LABS THIS AM SHOWED INR >10. DR PIZARRO CALLED AND ORDERED PT TO HAVE VIT K. PT NOT HAVING ANY BLEEDING NOTED. PT DENIES HEADACHE, CX PAIN OR SOB. PT IN NO DISTRESS. WILL PASS ON TO DAY RN.
[2021-05-03 13:12] LABS: International Normalized Ratio 1.9
[2021-05-03 13:58] LABS: Prothrombin Time Results 19.8 Sec (9.7-11.5)
[2021-05-03] MEDS ORDERED: LOPE2C PO (16:24)
[2021-05-03] MEDS ORDERED: SODIUM BICARBO PO (16:25)
[2021-05-03] MEDS ORDERED: TADA10TA PO (16:26)
[2021-05-03] MEDS ORDERED: ONDA4ODT MM (16:27)
--- NOTE | 2021-05-03 17:11 | NUR ---
DISCHARGE NOTE PT IS AOX4 AND PLEASANT. PT DENIES PAIN, N/V, SOB. PT IV REMOVED BY THIS RN PER DOCUMENTATION. THIS RN REVIEWED DC INSTRUCTIONS WITH PT WHO VERBALIZED UNDERSTANDING. PT DRESSED SELF IN HOME CLOTHING. PT ASSISTED INTO WHEELCHAIR FOR DC. PT WHEELED OFF UNIT WITH BELONGINGS ACCOMPANIED BY JET WIPER.
== END 2021-05-03 17:08 | disposition home health service (06) | DRG 683 ==
LOC: ER 10:42 → MEDS 10:43
PROVIDERS: Emergency Medicine; Internal Medicine; ADMIT Internal Medicine
DX: N17.9 Acute kidney failure, unspecified (principal); C34.90 Malignant neoplasm of unspecified part of unspecified bronchus or lung; C77.9 Secondary and unspecified malignant neoplasm of lymph node, unspecified; E87.2 Acidosis; E87.0 Hyperosmolality and hypernatremia; J96.11 Chronic respiratory failure with hypoxia; K52.9 Noninfective gastroenteritis and colitis, unspecified; E86.0 Dehydration; I27.20 Pulmonary hypertension, unspecified; I12.9 Hypertensive chronic kidney disease with stage 1 through stage 4 chronic kidney disease, or unspecified chronic kidney disease; N18.4 Chronic kidney disease, stage 4 (severe); F41.9 Anxiety disorder, unspecified; F32.9 Major depressive disorder, single episode, unspecified; E03.9 Hypothyroidism, unspecified; K21.9 Gastro-esophageal reflux disease without esophagitis; E78.5 Hyperlipidemia, unspecified; E87.6 Hypokalemia; R53.81 Other malaise; R79.1 Abnormal coagulation profile; Z66 Do not resuscitate; Z79.01 Long term (current) use of anticoagulants; Z79.899 Other long term (current) drug therapy; Z99.81 Dependence on supplemental oxygen
CPT/HCPCS: 0097U; 36415; 74176; 76705; 80048; 80053; 80069; 81001; 83690; 84484; 85025; 85027; 85610; 93005; 93010; 94640; 94760; 96361; 96374; 96375; 96376; 99285-25; A9270; C9113; G0378; J2405; J3010; J3430; J3480; J7030; J7070; J7512

== ENCOUNTER 2022-01-13 17:38 | Inpatient (IN) | payer MEDICARE, OTHER ==
[~2022-01-13] VITALS: Ht 160 cm; Wt 57.2 kg
[~2022-01-13 17:38] MED LIST changes: +AMLODIPINE BESY10 MG PO; +CLON.1 PO; -Coumadin4 MG PO; +FLUTICASONE-SA1 EAC9 INH; +FUROSEMIDE40 MG PO; +LOPE2C PO; +ONDA4ODT MM; +OPSUMIT10 MG PO; +Potassium Chlo20 ME1 PO; +Prednisone10 MG PO; +SODIUM BICARBO PO; +SPIRONOLACTONE25 MG PO; +WARF1 PO
[2022-01-13 18:42] LABS: BASOPHILS ABSOLUTE AUTO 0.05 K/mm3 (0.00-0.23); BASOPHILS PERCENT AUTO 0 % (0-2); EOSINOPHILS ABSOLUTE AUTO 0.08 K/mm3 (0.00-0.68); EOSINOPHILS PERCENT AUTO 1 % (0-6); Hematocrit 28.2 % (33.0-51.0); Hemoglobin 8.6 g/dL (11.5-16.0); IMMATURE GRAN ABSOLUTE AUTO 0.09 K/mm3 (0.00-0.10); IMMATURE GRAN PERCENT AUTO 1 % (0-1); LYMPHOCYTES ABSOLUTE AUTO 0.53 K/mm3 (0.84-5.20); LYMPHOCYTES PERCENT AUTO 4 % (21-46); MONOCYTES ABSOLUTE AUTO 0.66 K/mm3 (0.16-1.47); MONOCYTES PERCENT AUTO 5 % (4-13); Mean Corpuscular HGB 26.3 pg (26.0-34.0); Mean Corpuscular HGB Conc 30.5 g/dL (31.5-36.5); Mean Corpuscular Volume 86 fL (80-100); Mean Platelet Volume 10.3 fL (9.1-12.4); NEUTROPHILS ABSOLUTE AUTO 13.37 K/mm3 (1.96-9.15); NEUTROPHILS PERCENT AUTO 91 % (41-73); Platelet Count 233 K/mm3 (150-400); RDW Coefficient Variation 15.1 % (11.7-14.2); RDW Standard Deviation 48.1 fL (35.1-46.3); Red Blood Cell Count 3.27 M/mm3 (3.80-5.20); White Blood Cell Count 14.78 K/mm3 (4.00-11.30)
[2022-01-13 18:55] LABS: Albumin, Blood 3.1 g/dL (3.4-5.0); Albumin/Globulin Ratio 0.8 (0.8-1.8); Bilirubin, Total 0.6 mg/dL (0.1-1.0); Bun/Creatinine Ratio 14.8 (12.0-20.0); Calcium, Blood 8.5 mg/dL (8.5-10.1); Creatinine, Blood 2.98 mg/dL (0.40-1.00); Globulin, Blood 3.8 g/dL (2.2-4.0); Potassium, Blood 3.9 mmol/L (3.5-5.5); Total Protein, Blood 6.9 g/dL (6.4-8.2)
[2022-01-13 19:22] LABS: International Normalized Ratio 1.93; Prothrombin Time Results 19.4 Sec (9.7-11.5)
[2022-01-13 19:24] LABS: Base Excess Venous -9.5 mmol/L; Bicarbonate Venous 17.3 mmol/L (24.0-30.0); PCO2 Venous 38.2 mmHg (38-42); PO2 Venous 110 mmHg (38-42); pH Blood Venous 7.27 (7.34-7.37)
[2022-01-13 19:48] LABS: Influenza A, PCR NEGATIVE (NEGATIVE); Influenza B, PCR NEGATIVE (NEGATIVE); Resp Syncytial Virus, PCR NEGATIVE (NEGATIVE); SARS-Cov-2 (COVID-19) PCR, MMC NEGATIVE (NEGATIVE)
[2022-01-13 21:21] LABS: Base Excess Venous -9.8 mmol/L; Bicarbonate Venous 17.3 mmol/L (24.0-30.0); PCO2 Venous 28.9 mmHg (38-42); PO2 Venous 153 mmHg (38-42); pH Blood Venous 7.35 (7.34-7.37)
--- NOTE | 2022-01-13 23:33 | NUR ---
PT UPDATE LAB CALLED W/ CRITICAL LAB VALUE: tROPONIN 138. THIS IS INCREASED FROM PREVIOUS. CALL PLACED TO MD LAY. MD LAY WITH ORDERS FOR FOLLOWUP TROPONIN LAB WELL ONE ASPIRIN NOW.
[2022-01-14 04:02] LABS: BASOPHILS PERCENT AUTO 0 % (0-2); EOSINOPHILS PERCENT AUTO 0 % (0-6); Hematocrit 23.1 % (33.0-51.0); IMMATURE GRAN ABSOLUTE AUTO 0.04 K/mm3 (0.00-0.10); IMMATURE GRAN PERCENT AUTO 1 % (0-1); LYMPHOCYTES PERCENT AUTO 3 % (21-46); MONOCYTES ABSOLUTE AUTO 0.12 K/mm3 (0.16-1.47); MONOCYTES PERCENT AUTO 2 % (4-13); Mean Corpuscular HGB 25.9 pg (26.0-34.0); Mean Corpuscular HGB Conc 30.3 g/dL (31.5-36.5); Mean Corpuscular Volume 86 fL (80-100); Mean Platelet Volume 9.9 fL (9.1-12.4); NEUTROPHILS ABSOLUTE AUTO 6.66 K/mm3 (1.96-9.15); NEUTROPHILS PERCENT AUTO 95 % (41-73); Platelet Count 185 K/mm3 (150-400); RDW Coefficient Variation 15.1 % (11.7-14.2); RDW Standard Deviation 47.4 fL (35.1-46.3); White Blood Cell Count 7.02 K/mm3 (4.00-11.30)
[2022-01-14 04:19] LABS: International Normalized Ratio 1.71; Prothrombin Time Results 17.3 Sec (9.7-11.5)
[2022-01-14 04:21] LABS: Albumin, Blood 2.5 g/dL (3.4-5.0); Albumin/Globulin Ratio 0.7 (0.8-1.8); Bilirubin, Total 0.4 mg/dL (0.1-1.0); Bun/Creatinine Ratio 14.5 (12.0-20.0); Calcium, Blood 8.2 mg/dL (8.5-10.1); Creatinine, Blood 2.97 mg/dL (0.40-1.00); Globulin, Blood 3.4 g/dL (2.2-4.0); Total Protein, Blood 5.9 g/dL (6.4-8.2)
--- NOTE | 2022-01-14 04:47 | NUR ---
ADMIT NOTE AND SHIFT SUMMARY PT ARRIVED TO PCU FROM ED VIA ED STRETCHER AT APPROX 2145. PT WAS SLID BY 4 STAFF FROM ED STRETCHER TO PCU BED. PT A&OX4, PLEASANT. SP02>94% ON 10L NON REBREATHER UPON ARRIVAL. CALL PLACED TO RT, WHO CAME AND SWITCHED PT TO HUMIDIFIED HIFLO, 8L. TELEMETRY SHOWS NSR, VSS. PT DENIES PAIN. USED BEDPAN X2 THIS SHIFT TO VOID. NO BM THIS SHIFT. PT STATED SHE FELT WEAK, WAS ABLE TO EAT AN APPLESAUCE, AND STATED SHE FELT BETTER AFTER EATING. ABX INFUSED THIS SHIFT. PT ORIENTED TO ROOM, CALL LIGHT. PT DID NOT KNOW MEDICATIONS, STATED FRIEND WAS GOING TO BRING IN MEDICATION LIST AND ADVANCED DIRECTIVE IN AM. CALL LIGHT IN REACH.
--- NOTE | 2022-01-14 05:34 | NUR ---
LAB LAB CALLED TO NOTIFY OF CRITICAL VALUE: TROPONIN 121, WHICH HAS DECREADED FROM PREVIOUS TROP. CALL PLACED TO MD PIZARRO AND ALSO NOTIFIED HIM OF HGB 7.0, DECREASED FROM 8.6. MD PIZARRO W/ ORDERS FOR 1 UNIT PRBC.
[2022-01-14 08:22] LABS: Ferritin, Serum 72 ng/mL (8-252); Free Thyroxine 0.81 ng/dL (0.70-1.60); Iron Serum 6 ug/dL (50-170); Percent Saturation 3.1 % (15.0-50.0); Total Iron Binding Capacity 191 ug/dL (250-450)
--- NOTE | 2022-01-14 10:41 | NUR ---
CARE ASSUMPTION THIS RN ASSUMED CARE AT 0700 FROM KYLEIGH Saavedra RN. PATIENT IS ALERT AND ORIENTED X4. NERUO IS INTACT. PERRLA. LUNG SOUNDS COARSE. VSS. TELE SR 70S. PATIENT HAS STRONG RADAIL AND PEDIS PULSES BILATERALLY. PATIENT REPORTS NO CHEST PAIN/PRESSURE, PAIN, OR SHORTNESS OF BREATH. THIS RN NOTICED THAT THE PATIENT DOES BECOME SHORT OF BREATH WITH EXERTION. PATIENT IS RECEIVING 1UNIT OF BLOOD CURRENTLY. SEE TRANSFUSION SECTION FOR FURTHER DETAILS. PATIENT UNDERSTANDS PLAN OF CARE. THIS RN PROVIDED THERAPUETIC COMMUNICATION AND ACTIVE LISTENING. CALL LIGHT IS WITHIN REACH AND BED IN LOWEST POSITION. WILL CONTINUE TO MONITOR AND PROVIDE CARE.
[2022-01-14 13:28] LABS: Hematocrit 29.9 % (33.0-51.0); Hemoglobin 9.1 g/dL (11.5-16.0)
[2022-01-14 14:24] LABS: Cholesterol 142 mg/dL (50-200); HDL Cholesterol 48 mg/dL (>39); LDL/HDL RATIO 1.5; Low Density Lipoprotein Chol 71 mg/dL (0-110); Triglycerides 115 mg/dL (30-160); Very Low Density Lipoprot Chol 23 mg/dL (6-32)
--- NOTE | 2022-01-14 17:25 | NUR ---
SHIFT SUMMARY PATIENT NEURO REMAINS INTACT. VSS. PATIENT TOLERATED THE ONE UNIT OF BLOOD WELL, AND HAD NO ADVERSE REACTIONS. PATIENT LUNG SOUNDS STILL COARSE. NO ACUTE CHANGES THIS SHIFT. ABD IS NONTENDER AND ACTIVE. TELE SR BBB 70S. VSS. SPO2 >95% ON 4L NC. PATIENT REPORTS NO PAIN, CHEST PAIN/PRESSURE, OR NUMBNESS OR TINGLING. PATIENT DOES BECOME SHORT OF BREATH WITH EXERTION, BUT DOES NOT DESAT WITH ACTIVITY. PATIENT HAS USED THE BATHROOM WITH A STAND BY ASSIST. PATIENT USES THE CALL LIGHT APPROPRIATELY. PATIENT HAS A DECREASED APPEITE AND DID SPEAK WITH THE PMP PROJECT MANAGER TODAY. PATIENT IS CURRENTLY SITTING IN BED EATING DINNER. CALL LIGHT IS WITHIN REACH AND PHONE IS WITHIN REACH. PATIENTS FRIEND, KIRBY, IS GOING TO BRING IN PATIENT MEDICATIONS TOMORROW, SHE WAS UNABLE TO TODAY, TO COMPLETE THE HOME MED REC. CALL LIGHT IS WITHIN REACH AND BED IS IN LOWEST POSITION. WILL CONTINUE TO MONITOR AND PROVIDE CARE UNTIL HAND OFF WITH NEXT SHIFT.
[2022-01-15 03:43] LABS: BASOPHILS ABSOLUTE AUTO 0.04 K/mm3 (0.00-0.23); BASOPHILS PERCENT AUTO 1 % (0-2); EOSINOPHILS ABSOLUTE AUTO 0.26 K/mm3 (0.00-0.68); EOSINOPHILS PERCENT AUTO 4 % (0-6); Hematocrit 26.2 % (33.0-51.0); Hemoglobin 8.4 g/dL (11.5-16.0); IMMATURE GRAN ABSOLUTE AUTO 0.02 K/mm3 (0.00-0.10); IMMATURE GRAN PERCENT AUTO 0 % (0-1); LYMPHOCYTES ABSOLUTE AUTO 0.61 K/mm3 (0.84-5.20); LYMPHOCYTES PERCENT AUTO 9 % (21-46); MONOCYTES ABSOLUTE AUTO 0.48 K/mm3 (0.16-1.47); MONOCYTES PERCENT AUTO 7 % (4-13); Mean Corpuscular HGB 26.8 pg (26.0-34.0); Mean Corpuscular HGB Conc 32.1 g/dL (31.5-36.5); Mean Corpuscular Volume 84 fL (80-100); NEUTROPHILS ABSOLUTE AUTO 5.72 K/mm3 (1.96-9.15); NEUTROPHILS PERCENT AUTO 80 % (41-73); Platelet Count 221 K/mm3 (150-400); RDW Standard Deviation 45.9 fL (35.1-46.3); Red Blood Cell Count 3.13 M/mm3 (3.80-5.20); White Blood Cell Count 7.13 K/mm3 (4.00-11.30)
[2022-01-15 04:00] LABS: Albumin, Blood 2.4 g/dL (3.4-5.0); Anion Gap 5 mmol/L (6-16); Blood Urea Nitrogen 48 mg/dL (8-24); Bun/Creatinine Ratio 15.8 (12.0-20.0); CO2, Blood 25 mmol/L (21-32); Calcium, Blood 8.1 mg/dL (8.5-10.1); Chloride, Blood 115 mmol/L (98-108); Creatinine, Blood 3.03 mg/dL (0.40-1.00); Glomerular Filtration Rate 15 (60-); Glucose, Blood 109 mg/dL (70-99); Phosphorus, Blood 5.6 mg/dL (2.5-4.9); Potassium, Blood 3.3 mmol/L (3.5-5.5); Sodium, Blood 145 mmol/L (136-145)
[2022-01-15 04:10] LABS: International Normalized Ratio 2.23; Prothrombin Time Results 22.2 Sec (9.7-11.5)
--- NOTE | 2022-01-15 07:40 | NUR ---
CARE ASSUMPTION THIS RN ASSUMED CARE AT 0700 FROM BRADLEY MCCLAIN. PATIENT IS ALERT AND ORIENTED X4. NEURO IS INTACT. PERRLA. PATIENT REPORTS NO NUMBNESS OT TINGLING. VSS. SPO2 >95% ON 5L NC. LUNG SOUNDS COARSE. PATIENT EXPERIENCES SHORTNESS OF BREATH WITH EXERTION. TELE SR 70S. PATIENT REPORTS NO CHEST PAIN/PRESSURE. CAP REFIL <3SECONDS. PATIENT RADIAL AND PEDIS PULSE BILATERALLY IS STRONG. PATIENT ABD IS ACTIVE, SOFT, AND NONTENDER. PATIENT HAS SOME REDDNESS TO HER COCCYX, AND WILL ENCOURAGE REPOSITIONING TO PREVENT SKIN BREAKDOWN. PATIENT REPORTS NO PAIN OR DISCOMFORT THIS MORNING. PATIENT STATED THAT SHE DIDN'T SLEEP VERY MUCH AND IS TIRED TODAY, SO THIS RN OFFERED TO TURN THE LIGHT OFF AND MINIMIZE DISTURBANCES SO SHE COULD GET SOME REST. OTHERWISE THE PATIENT HAS NO QUESTIONS OR CONCERNS AT THIS TIME. WE DISCUSSED HER PLAN OF CARE, AND THE PATIENT VERABLIZED UNDERSTANDING OF IT. CALL LIGHT IS WITHIN REACH AND BED IN LOWEST POSITION. WILL CONTINUE TO MONITOR AND PROVIDE CARE.
[2022-01-15 12:34] LABS: Stool Occult Blood Guaiac 1 Pos (Neg)
[2022-01-15] MEDS ORDERED: Prednisone10 MG PO (12:39)
--- NOTE | 2022-01-15 12:53 | NUR ---
UPDATE THE PATIENTS FRIEND, KIRBY, BROUGHT IN THE PATIENTS MEDICATIONS. THIS RN CONFIRMED THEM WITH THE PATIENT AND UPDATED THE MEDICATION LIST.
--- NOTE | 2022-01-15 15:29 | NUR ---
REPORT TO MEDICAL FLOOR RN THIS RN GAVE REPORT TO MEDICAL FLOOR RN AT APPROX 1415. THIS RN GATHERED ALL OF THE PATIENT BELONGINGS, CLOTHES, MEDICATIONS, AND ITEMS; ALL OF THIS WAS WITH PATIENT WHEN TRANSFERING TO MEDICAL FLOOR NEW ROOM IN [facility]. PATIENT WAS IN NO DISTRESS WHEN MOVING TO MEDICAL FLOOR. NO ACUTE CHANGES THIS SHIFT.
--- NOTE | 2022-01-15 15:41 | NUR ---
PATIENT ARRIVED TO [facility] FLOOR APPROX 1500 TODAY VIA WHEEL CHAIR. PATIENT IS VERY TEARY AND EXPRESSES THAT SHE DID NOT WANT TO LEAVE PCU. THIS RN SITS IN ROOM WITH PATIENT AND TALKS WITH HER. PATIENT EXPRESSES THAT SHE IS FEELING BETTER AND LESS ANXIOUS. WILL ROUND OFTEN ON THIS PATIENT AND ENCOURAGE HER TO USE CALL LIGHT WHEN SHE FEELS ANXIOUS AND NEEDS SOMEONE TO COME TALK TO HER. PATIENT VERBALIZED UNDERSTANDING. PER REPORT. PATIENT IS ON HER BASELINE 4 LITERS O2 VIA NASAL CANNULA. SHE HAS STAGE 4 LUNG CANCER. SHE IS A DNR. SHE IS RECEIVING IV LASIX AND HAS CHRONIC KIDNEY DISEASE. SHE HAS BEEN SOB FOR APPROX ONE WEEK. HER LUNG SOUNDS ARE COARSE AND SHE USES PURSED LIP BREATHING WITH EXERTION. SHE IS ON A 2GM LOW SODIUM DIET. SHE IS A ONE PERSON ASSIST TO THE BATHROOM AND SHE IS AREQUESTING A COMMODE AT BEDSIDE FOR INCREASED WEAKNESS WITH AMBULATION. PATIENT SEE'S FOR HER CHEMO THERAPY AND FOR PULMONOLOGY. HER HAS CHEMO EVERY 3 WEEKS, AND HAS RECEIVED 3 TREATMENTS SO FAR. SHE IS NOTED TO HAVE A POSITIVE GUIAC TODAY.
[2022-01-16 05:04] LABS: BASOPHILS ABSOLUTE AUTO 0.06 K/mm3 (0.00-0.23); BASOPHILS PERCENT AUTO 1 % (0-2); EOSINOPHILS ABSOLUTE AUTO 0.28 K/mm3 (0.00-0.68); EOSINOPHILS PERCENT AUTO 4 % (0-6); Hematocrit 29.5 % (33.0-51.0); Hemoglobin 9.2 g/dL (11.5-16.0); IMMATURE GRAN ABSOLUTE AUTO 0.02 K/mm3 (0.00-0.10); IMMATURE GRAN PERCENT AUTO 0 % (0-1); LYMPHOCYTES ABSOLUTE AUTO 0.74 K/mm3 (0.84-5.20); LYMPHOCYTES PERCENT AUTO 12 % (21-46); MONOCYTES ABSOLUTE AUTO 0.54 K/mm3 (0.16-1.47); MONOCYTES PERCENT AUTO 8 % (4-13); Mean Corpuscular HGB 26.4 pg (26.0-34.0); Mean Corpuscular HGB Conc 31.2 g/dL (31.5-36.5); Mean Corpuscular Volume 85 fL (80-100); Mean Platelet Volume 10.1 fL (9.1-12.4); NEUTROPHILS ABSOLUTE AUTO 4.77 K/mm3 (1.96-9.15); NEUTROPHILS PERCENT AUTO 75 % (41-73); Platelet Count 254 K/mm3 (150-400); RDW Standard Deviation 46.8 fL (35.1-46.3); Red Blood Cell Count 3.49 M/mm3 (3.80-5.20); White Blood Cell Count 6.41 K/mm3 (4.00-11.30)
[2022-01-16 05:31] LABS: Albumin, Blood 2.5 g/dL (3.4-5.0); Anion Gap 6 mmol/L (6-16); Blood Urea Nitrogen 44 mg/dL (8-24); Bun/Creatinine Ratio 14.3 (12.0-20.0); CO2, Blood 26 mmol/L (21-32); Calcium, Blood 8.3 mg/dL (8.5-10.1); Chloride, Blood 116 mmol/L (98-108); Creatinine, Blood 3.07 mg/dL (0.40-1.00); Glomerular Filtration Rate 15 (60-); Glucose, Blood 91 mg/dL (70-99); Phosphorus, Blood 5.2 mg/dL (2.5-4.9); Sodium, Blood 148 mmol/L (136-145)
[2022-01-16 05:43] LABS: International Normalized Ratio 4.18
--- NOTE | 2022-01-16 05:53 | NUR ---
SHIFT SUMMARY 81 YR F ADMITTED ON 01/13/22 FOR PNEUMONIA. DNR. PT HAS STAGE 4 LUNG CANCER AND STATES THAT SHE FEELS WEAK AND IS READY FOR THE lORD TO TAKE HER HOME. LEFT ARM IV INFILTRATED LAST NIGHT AND BECAME SWOLLEN AND VERY PAINFUL FOR PT. IV WAS DC'D AND PAIN MEDS PER EMAR AND THIS NURSE AND DATABASE TECHNICIAN SAT W/ PT FOR APPROX 45 MIN AND ENGAGED IN CONVERSATION TO DIVERT HER ATTENTION FROM THE PAIN IN HER ARM. SHE WAS APPRECIATIVE FOR THE DISTRACTION AND WAS ABLE TO GET SOME SLEEP AFTER THAT. SHE IS INDEPENDANT TO THE BATHROOM AND IS A&O X 4. NO OTHER ACUTE CHANGES THIS SHIFT.
--- NOTE | 2022-01-16 09:14 | NUR ---
Brief visit this AM. Pt reporting significant heart burn and nausea. Pt agreeable for this RN to return when she is feeling better. Spoke with Primary RN Kina and discussed case. IV Zofran has just been ordered and will be offered once verfied by pharmacy. Kina reports Pt may benefit from discussion regarding goals of care. Palliative Care will F/U at a later time.
[2022-01-16 12:29] LABS: Hematocrit 35.7 % (33.0-51.0); Hemoglobin 10.7 g/dL (11.5-16.0)
[2022-01-16 13:07] LABS: Bun/Creatinine Ratio 14.6 (12.0-20.0); Calcium, Blood 8.8 mg/dL (8.5-10.1); Creatinine, Blood 2.94 mg/dL (0.40-1.00); Potassium, Blood 2.7 mmol/L (3.5-5.5)
--- NOTE | 2022-01-16 17:57 | NUR ---
SHIFT SUMMARY; PATIENT HAD SEVERAL EPISODES OF INCREASED ANXIETY. SHE WAS MEDICATED X 1 WITH XANAX WITH GOOD SUCCESS. SHE ALSO WAS DISTRACTED BY THIS RN SITTING IN ROOM AND TALKING WITH HER ABOUT HER PETS. PATIENT DOES NOT WANT TO DC HOME FOR A FEW DAYS SHE DOES NOT HAVE SUPPORT AT HOME (PER PATIENT) SHE HAD MULTIPLE EPISODES OF LOOSE STOOLS TODAY. MD ORDERS FOR IMMODIUM PO. PATIENT ALSO HAD LOW POTASSIUM OF 2.7 THIS AFTERNOON AND IS CURRENTLY RECEIVING 40MEQ OF POTTASIUM IV. PATIENT HAS DECREASED APPETITE AND WILL PASS ON TO NEXT SHIFT TO ENCOURAGE PATIENT TO EAT A SNACK TONIGHT.
[2022-01-17 05:16] LABS: BASOPHILS ABSOLUTE AUTO 0.06 K/mm3 (0.00-0.23); BASOPHILS PERCENT AUTO 1 % (0-2); EOSINOPHILS ABSOLUTE AUTO 0.29 K/mm3 (0.00-0.68); EOSINOPHILS PERCENT AUTO 5 % (0-6); Hematocrit 32.4 % (33.0-51.0); Hemoglobin 10.1 g/dL (11.5-16.0); IMMATURE GRAN ABSOLUTE AUTO 0.02 K/mm3 (0.00-0.10); IMMATURE GRAN PERCENT AUTO 0 % (0-1); LYMPHOCYTES ABSOLUTE AUTO 0.82 K/mm3 (0.84-5.20); LYMPHOCYTES PERCENT AUTO 14 % (21-46); MONOCYTES ABSOLUTE AUTO 0.53 K/mm3 (0.16-1.47); MONOCYTES PERCENT AUTO 9 % (4-13); Mean Corpuscular HGB 26.5 pg (26.0-34.0); Mean Corpuscular HGB Conc 31.2 g/dL (31.5-36.5); Mean Corpuscular Volume 85 fL (80-100); Mean Platelet Volume 10.3 fL (9.1-12.4); NEUTROPHILS ABSOLUTE AUTO 4.28 K/mm3 (1.96-9.15); NEUTROPHILS PERCENT AUTO 71 % (41-73); Platelet Count 273 K/mm3 (150-400); RDW Standard Deviation 46.5 fL (35.1-46.3); Red Blood Cell Count 3.81 M/mm3 (3.80-5.20)
[2022-01-17 05:48] LABS: Prothrombin Time Results 44.1 Sec (9.7-11.5)
[2022-01-17 05:49] LABS: Albumin, Blood 2.7 g/dL (3.4-5.0); Anion Gap 7 mmol/L (6-16); Blood Urea Nitrogen 40 mg/dL (8-24); Bun/Creatinine Ratio 13.5 (12.0-20.0); CO2, Blood 25 mmol/L (21-32); Calcium, Blood 8.4 mg/dL (8.5-10.1); Chloride, Blood 117 mmol/L (98-108); Creatinine, Blood 2.96 mg/dL (0.40-1.00); Glomerular Filtration Rate 15 (60-); Glucose, Blood 87 mg/dL (70-99); Phosphorus, Blood 4.1 mg/dL (2.5-4.9); Potassium, Blood 3.3 mmol/L (3.5-5.5); Sodium, Blood 149 mmol/L (136-145)
[2022-01-17 05:51] LABS: International Normalized Ratio 4.64
--- NOTE | 2022-01-17 06:25 | NUR ---
SHIFT SUMMARY: PATIENT NAUSEA, ANXIETY, AND DIARRHEA TREATED PER EMAR WITH ADEQUATE RELEIF PER PATIENT. LAC IV INFLITRATED, ELEVATED AND ICED. NEW IV PLACED. PATIENT IS COMPLIANT WITH PLAN OF CARE AND MEDICATION ADMINISTRATION. IS ON BASELINE O2 OF 4L. TELE = NSR WITH BBB 70-80.DECREASED APPETITE, LIKES TO GRAZE. PATIENT SLEPT WELL THROUGH THE NIGHT. WCTM.
--- NOTE | 2022-01-17 09:00 | NUR ---
PT PLEASANT COOP A/O X3. IS ANX. MED PER EMAR. H/R IRREG, MURMER NOTED. PER TLE NSR WITH PAC'S, RATE 70-80. LUNGS CLEAR THIS AM. RESP EASY, UNLABORED ON 4L O2 WHICH IS HER BASELINE PER PT. BT X4 LAST BM TODAY. STATES DIARRHEA. REQUEST DR EITAN AWARE. MED PER EMAR. VOIDS BATHROOM. INDEPENDANT IN ROON. BED IN LOW POSITION,C ALL LITE IN REACH,CALLS APPROP
--- NOTE | 2022-01-17 15:00 | NUR ---
assumed pt care, she is complaining of nausea, zofran given with good relief, pt pleasant and cooperative with care, follows commands well, denies pain, lungs are course in bases, clear in [place], currently on 2 liters 02 via n/c, is home o2 dep on 4 liters 15/05, no cough noted, hrr, loud murmur noted, no edema noted, ppp+2, cap refill <3sec, vs stable, afebrile, piv site to rwrist c/w/d, btx4, abd flat soft nontender, voids without diff, having some loose stool, skin c/w/d, maew, travis, call light in reach.
--- NOTE | 2022-01-17 17:59 | NUR ---
pt had some loose stools, immodium given, is concerned about going home with this going on, supposed to go home tomorrow. no further changes this shift. call light in reach.
--- NOTE | 2022-01-18 04:28 | NUR ---
SHIFT SUMMARY: NO SIGNIFCNAT EVENTS ON NOC. TREATED ANXIETY AND DIARRHES PER EMAR. PATIENT IS ANXIOUS ABOUT POTENTIAL DC.
[2022-01-18 05:35] LABS: International Normalized Ratio 3.26; Prothrombin Time Results 31.7 Sec (9.7-11.5)
[2022-01-18] MEDS ORDERED: LOPE2C PO (11:19)
[2022-01-18] MEDS ORDERED: VISBIOME 112.51 EACH PO (11:19)
--- NOTE | 2022-01-18 12:22 | NUR ---
SHIFT SUMMARY PATIENT IS ALERT AND ORIENTED X4. PATIENT HAS HAD NO ACUTE EVENTS THIS SHIFT. VITAL SIGNS REVIEWED. PATIENT IS IND IN ROOM. PATIENT IS AT BASELINE 4L OXYGEN. PATIENT WAS READ AND UNDERSTOOD DISCHARGE INSTRUCTIONS. PATIENT WAS WHEELED OUT BY ALLISON FIGUEROA AND ACCOMPANYIED BY NEIGHBOR/FRIEND KIRBY TO FRIENDS CAR.
== END 2022-01-18 12:14 | disposition home or self-care (01) | DRG 871 ==
LOC: ER 17:38 → PCU 21:45 → MEDS 01-15 14:56
PROVIDERS: Emergency Medicine; Family Medicine; ADMIT Internal Medicine
DX: A41.9 Sepsis, unspecified organism (principal); J18.9 Pneumonia, unspecified organism; J96.21 Acute and chronic respiratory failure with hypoxia; I50.31 Acute diastolic (congestive) heart failure; E87.2 Acidosis; N18.4 Chronic kidney disease, stage 4 (severe); I13.0 Hypertensive heart and chronic kidney disease with heart failure and stage 1 through stage 4 chronic kidney disease, or unspecified chronic kidney disease; E87.1 Hypo-osmolality and hyponatremia; C34.90 Malignant neoplasm of unspecified part of unspecified bronchus or lung; I24.8 Other forms of acute ischemic heart disease; K52.1 Toxic gastroenteritis and colitis; Z20.822 Contact with and (suspected) exposure to COVID-19; Z66 Do not resuscitate; D63.1 Anemia in chronic kidney disease; E03.9 Hypothyroidism, unspecified; K21.9 Gastro-esophageal reflux disease without esophagitis; F32.A Depression, unspecified; E87.6 Hypokalemia; E88.09 Other disorders of plasma-protein metabolism, not elsewhere classified; Z90.710 Acquired absence of both cervix and uterus; Z98.890 Other specified postprocedural states; R79.89 Other specified abnormal findings of blood chemistry; I27.20 Pulmonary hypertension, unspecified; T36.95XA Adverse effect of unspecified systemic antibiotic, initial encounter
CPT/HCPCS: 0241U; 36415; 36430; 71045; 80048; 80053; 80061; 80069; 82272; 82607; 82728; 82746; 82803; 83540; 83550; 83605; 83880; 84145; 84439; 84443; 84484; 85014; 85018; 85025; 85610; 86850; 86900; 86901; 86923; 87040; 93005; 93010; 93306; 94640; 94664; 94760; 94762; 96365; 96366; 96375; 99285-25; A9270; J0456; J0696; J1940; J2405; J2543; J2930; J3475; J3480; J7050; P9016

== ENCOUNTER 2022-03-15 14:10 | Inpatient (IN) | payer MEDICARE, OTHER ==
[~2022-03-15] VITALS: Ht 160 cm; Wt 53.9 kg
[~2022-03-15 14:10] MED LIST changes: +VISBIOME 112.51 EACH PO
[2022-03-15 14:38] LABS: BASOPHILS ABSOLUTE AUTO 0.04 K/mm3 (0.00-0.23); BASOPHILS PERCENT AUTO 0 % (0-2); EOSINOPHILS ABSOLUTE AUTO 0.07 K/mm3 (0.00-0.68); EOSINOPHILS PERCENT AUTO 1 % (0-6); Hematocrit 26.5 % (33.0-51.0); Hemoglobin 7.9 g/dL (11.5-16.0); IMMATURE GRAN ABSOLUTE AUTO 0.04 K/mm3 (0.00-0.10); IMMATURE GRAN PERCENT AUTO 0 % (0-1); LYMPHOCYTES ABSOLUTE AUTO 0.32 K/mm3 (0.84-5.20); LYMPHOCYTES PERCENT AUTO 3 % (21-46); MONOCYTES ABSOLUTE AUTO 0.34 K/mm3 (0.16-1.47); MONOCYTES PERCENT AUTO 3 % (4-13); Mean Corpuscular HGB 25.8 pg (26.0-34.0); Mean Corpuscular HGB Conc 29.8 g/dL (31.5-36.5); Mean Corpuscular Volume 87 fL (80-100); Mean Platelet Volume 10.2 fL (9.1-12.4); NEUTROPHILS ABSOLUTE AUTO 9.56 K/mm3 (1.96-9.15); NEUTROPHILS PERCENT AUTO 92 % (41-73); Platelet Count 216 K/mm3 (150-400); RDW Coefficient Variation 17.6 % (11.7-14.2); RDW Standard Deviation 56.4 fL (35.1-46.3); Red Blood Cell Count 3.06 M/mm3 (3.80-5.20); White Blood Cell Count 10.37 K/mm3 (4.00-11.30)
[2022-03-15 15:21] LABS: Albumin, Blood 3.4 g/dL (3.4-5.0); Albumin/Globulin Ratio 1.1 (0.8-1.8); Bilirubin, Total 0.7 mg/dL (0.1-1.0); Bun/Creatinine Ratio 17.4 (12.0-20.0); Calcium, Blood 8.5 mg/dL (8.5-10.1); Creatinine, Blood 3.17 mg/dL (0.40-1.00); Globulin, Blood 3.2 g/dL (2.2-4.0); Potassium, Blood 4.3 mmol/L (3.5-5.5); Total Protein, Blood 6.6 g/dL (6.4-8.2)
[2022-03-15 15:56] LABS: Source, Urine Clean Catch
[2022-03-15 16:02] LABS: Appearance, Urine Clear (Clear); Bilirubin, Urine Neg (Neg); Blood, Urine Neg (Neg); Color, Urine Yellow (P-Yellow); Glucose Qualitative, Urine Neg (Neg); Ketones, Urine Neg (Neg); Leukocyte Esterase, Urine Neg (Neg); Nitrite, Urine Neg (Neg); Protein, Urine Neg (Neg); Specific Gravity, Urine 1.015 (1.003-1.022); Urobilinogen, Urine NORM (Normal)
[2022-03-15 16:55] LABS: Influenza A, PCR NEGATIVE (NEGATIVE); Influenza B, PCR NEGATIVE (NEGATIVE); Resp Syncytial Virus, PCR NEGATIVE (NEGATIVE); SARS-Cov-2 (COVID-19) PCR, MMC NEGATIVE (NEGATIVE)
[2022-03-15 19:20] LABS: International Normalized Ratio 1.3; Prothrombin Time Results 13.4 Sec (9.7-11.5)
--- NOTE | 2022-03-16 03:58 | NUR ---
PT A & OX4. REGULAR DIET. IV TO R) FOREARM. TELE: SINUS RYTHM; HR:73 BPM. DNR. SBA. V/S WNL. O2 @ 5LPM VIA N/C. PT VOIDED W/O DIFFICULTY. NO BM THIS SHIFT. PRN XANAX GIVEN FOR ANXIETY PER EMAR. WILL CONTINUE TO MONITOR.
[2022-03-16 05:12] LABS: Hematocrit 23.9 % (33.0-51.0); Hemoglobin 6.9 g/dL (11.5-16.0); Mean Corpuscular HGB 25.9 pg (26.0-34.0); Mean Corpuscular HGB Conc 28.9 g/dL (31.5-36.5); Mean Corpuscular Volume 90 fL (80-100); Mean Platelet Volume 10.4 fL (9.1-12.4); Platelet Count 206 K/mm3 (150-400); RDW Coefficient Variation 17.9 % (11.7-14.2); RDW Standard Deviation 58.9 fL (35.1-46.3); Red Blood Cell Count 2.66 M/mm3 (3.80-5.20); White Blood Cell Count 5.95 K/mm3 (4.00-11.30)
[2022-03-16 05:26] LABS: International Normalized Ratio 1.46
[2022-03-16 05:39] LABS: Bun/Creatinine Ratio 15.3 (12.0-20.0); Calcium, Blood 8.2 mg/dL (8.5-10.1); Creatinine, Blood 3.33 mg/dL (0.40-1.00); Potassium, Blood 4.2 mmol/L (3.5-5.5)
--- NOTE | 2022-03-16 06:27 | NUR ---
PROVIDER INFORMED OF PT'S HM.9 THIS AM. PROVIDER ORDERED 1 UNIT OF RED PACKED BLOOD CELLS. ORDER ENTERED. WILL CONTINUE TO MONITOR.
--- NOTE | 2022-03-16 15:46 | NUR ---
Spiritual care visit conducted. Patient is lying in bed and alert. Patient tells me about the of her spouse in recent yrs and the grief she has experienced. We talk at length about their life together, his characteristics and her bereavement. 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 She also talks about the wonderful friends and neighbors and friends she has and about her deep Evangelical golden (with strong Congregation ties). We talk about her medical conditions and her agreement to go on hospice if DR. Crenshaw agrees with this plan. She states that her sister would to come and watch her if her health continues to decline. I normalize pt's concerns, encourage self-care, explore spiritual beliefs and provide empathic listening, grief support, gentle certified rehabilitation counselor and prayer. Pt responds well and shows signs of being encouraged in her golden and increased peace. I will continue to remain available to patient and family. grief support
--- NOTE | 2022-03-16 16:45 | NUR ---
PT IS A/OX3. PLEASANT AND COOPERATIVE. THE PT IS UP WITH MINIMAL ASSIST TO THE BATHROOM. THE PT WAS MEDICATED FOR NAUSEA X2 TODAY. PT WAS GIVEN 1 UNIT OF PRBC'S THIS AM AND TOLERATED THE TRANSFUSION WELL. THE PT WAS CONSULTED BY PALLIATIVE CARE TODAY. PT IS ON O2 AT 5L/MIN HER BASELINE AT REST AND IS MILDLY SOB WITH ACTIVITY
--- NOTE | 2022-03-16 17:57 | NUR ---
[facility] pt to review her needs. Pt is still living on her own and driving. She states it has gotten difficult to drive. She denies falls complains of more fatigue and shorness of breath. She only has a sister to help her. She has six acres and a mobile home. sh states she does not have a will or power of evaluator transfer students. she struggles with dealing with money. She know she cannot be on her own for much longer. She wants to speak with doctor denney about her prognosis. She is wavering about hospice. She often states she wishes she would just drop an not have to deal with anything. Will call will Call dr denney staff to reivew plan of care. Pt needs home santi for symptom managment and repitory assessment may need home nebulized treatments.
[2022-03-17 05:30] LABS: International Normalized Ratio 2.29; Prothrombin Time Results 22.8 Sec (9.7-11.5)
--- NOTE | 2022-03-17 05:48 | NUR ---
SHIFT SUMMARY PT HAD AN UNEVENTFUL NIGHT. SLEPT WELL THROUGH MUCH OF THE NIGHT. REMAINED ON 5 L VIA NC. PT DOES REPORT MILD SOB AT REST WORSENING WITH EXERTION. PT REPORTS THAT THIS IS AT HER BASELINE. PT HOPEFUL TO DISCHARGE HOME TODAY. TELE REMAINED SINUS RHYTHM. NO COMPLAINTS OF PAIN. VITAL SIGNS STABLE.
[2022-03-17 07:50] LABS: BASOPHILS ABSOLUTE AUTO 0.07 K/mm3 (0.00-0.23); BASOPHILS PERCENT AUTO 1 % (0-2); EOSINOPHILS ABSOLUTE AUTO 0.15 K/mm3 (0.00-0.68); EOSINOPHILS PERCENT AUTO 3 % (0-6); Hematocrit 28.2 % (33.0-51.0); Hemoglobin 8.5 g/dL (11.5-16.0); IMMATURE GRAN ABSOLUTE AUTO 0.02 K/mm3 (0.00-0.10); IMMATURE GRAN PERCENT AUTO 0 % (0-1); LYMPHOCYTES ABSOLUTE AUTO 0.66 K/mm3 (0.84-5.20); LYMPHOCYTES PERCENT AUTO 12 % (21-46); MONOCYTES ABSOLUTE AUTO 0.59 K/mm3 (0.16-1.47); MONOCYTES PERCENT AUTO 10 % (4-13); Mean Corpuscular HGB 26.8 pg (26.0-34.0); Mean Corpuscular HGB Conc 30.1 g/dL (31.5-36.5); Mean Corpuscular Volume 89 fL (80-100); Mean Platelet Volume 11.3 fL (9.1-12.4); NEUTROPHILS ABSOLUTE AUTO 4.19 K/mm3 (1.96-9.15); NEUTROPHILS PERCENT AUTO 74 % (41-73); Platelet Count 215 K/mm3 (150-400); RDW Coefficient Variation 17.4 % (11.7-14.2); RDW Standard Deviation 57.2 fL (35.1-46.3); Red Blood Cell Count 3.17 M/mm3 (3.80-5.20); White Blood Cell Count 5.68 K/mm3 (4.00-11.30)
[2022-03-17] MEDS ORDERED: ALBU2.5V5 INH (11:20)
[2022-03-17] MEDS ORDERED: CEPACOL MT (11:22)
[2022-03-17] MEDS ORDERED: PANT20 PO (11:22)
--- NOTE | 2022-03-17 15:18 | NUR ---
PT DISCHARGED THE PT VERBALIZED UNDERSTANDING OF THE DC INSTRUCTIONS. THE PTS PRESCRIPTIONS FAXED TO [facility] REQUESTED. THE PT NEBULIZER MACHINE WAS DELIVERED TO HER ROOM BEFORE DC. THE PT WAS TRANSFERED VIA WHEELCHAIR TO THE FRONT DOOR TO MEET HER RIDE ACCOMPANIED BY THE ASSISTANT MANAGER OF OPERATIONS.
== END 2022-03-17 14:43 | disposition home health service (06) | DRG 180 ==
LOC: ER 14:10 → MEDS 16:47
PROVIDERS: Internal Medicine; Student in an Organized Health Care Education/Training Program; ADMIT Internal Medicine
PROC: 30233N1 Transfusion of Nonautologous Red Blood Cells into Peripheral Vein, Percutaneous Approach (ICD-10-PCS; principal; 2022-03-16)
DX: C34.30 Malignant neoplasm of lower lobe, unspecified bronchus or lung (principal); J96.21 Acute and chronic respiratory failure with hypoxia; I50.33 Acute on chronic diastolic (congestive) heart failure; J18.8 Other pneumonia, unspecified organism; E87.2 Acidosis; N18.4 Chronic kidney disease, stage 4 (severe); I13.0 Hypertensive heart and chronic kidney disease with heart failure and stage 1 through stage 4 chronic kidney disease, or unspecified chronic kidney disease; Z66 Do not resuscitate; Z20.822 Contact with and (suspected) exposure to COVID-19; D63.0 Anemia in neoplastic disease; I27.20 Pulmonary hypertension, unspecified; E03.9 Hypothyroidism, unspecified; I34.0 Nonrheumatic mitral (valve) insufficiency; I35.0 Nonrheumatic aortic (valve) stenosis; D63.1 Anemia in chronic kidney disease; K21.9 Gastro-esophageal reflux disease without esophagitis; F41.9 Anxiety disorder, unspecified; F32.A Depression, unspecified; Z79.01 Long term (current) use of anticoagulants; Z79.899 Other long term (current) drug therapy; Z90.710 Acquired absence of both cervix and uterus; Z90.89 Acquired absence of other organs; Z98.890 Other specified postprocedural states; Z99.81 Dependence on supplemental oxygen
CPT/HCPCS: 0241U; 36415; 36430; 71045; 80048; 80053; 81003; 83735; 83880; 84145; 84484; 85025; 85027; 85610; 86850; 86900; 86901; 86923; 93005; 93010; 94640; 94664; 94760; 96365; 96375; 99285-25; A9270; C9113; J1940; J1956; J2060; J2405; J7040; P9016

== ENCOUNTER 2022-04-04 14:59 | Emergency (ER) | payer MEDICARE, OTHER ==
[~2022-04-04] VITALS: Ht 160 cm; Wt 54.4 kg
[~2022-04-04 14:59] MED LIST changes: +ALBU2.5V5 INH; +CEPACOL MT; +PANT20 PO
[2022-04-04 16:23] LABS: BASOPHILS ABSOLUTE AUTO 0.03 K/mm3 (0.00-0.23); BASOPHILS PERCENT AUTO 0 % (0-2); EOSINOPHILS ABSOLUTE AUTO 0.07 K/mm3 (0.00-0.68); EOSINOPHILS PERCENT AUTO 1 % (0-6); Hematocrit 31.1 % (33.0-51.0); Hemoglobin 9.6 g/dL (11.5-16.0); IMMATURE GRAN ABSOLUTE AUTO 0.04 K/mm3 (0.00-0.10); IMMATURE GRAN PERCENT AUTO 1 % (0-1); LYMPHOCYTES ABSOLUTE AUTO 0.69 K/mm3 (0.84-5.20); LYMPHOCYTES PERCENT AUTO 8 % (21-46); MONOCYTES ABSOLUTE AUTO 0.57 K/mm3 (0.16-1.47); MONOCYTES PERCENT AUTO 7 % (4-13); Mean Corpuscular HGB 26.6 pg (26.0-34.0); Mean Corpuscular HGB Conc 30.9 g/dL (31.5-36.5); Mean Corpuscular Volume 86 fL (80-100); NEUTROPHILS ABSOLUTE AUTO 7.21 K/mm3 (1.96-9.15); NEUTROPHILS PERCENT AUTO 84 % (41-73); NRBC ABSOLUTE 0.02 K/mm3 (0.00-0.02); NRBC Auto 0.2 /100 WBC (0.0-0.2); RDW Coefficient Variation 16.5 % (11.7-14.2); RDW Standard Deviation 51.9 fL (35.1-46.3); Red Blood Cell Count 3.61 M/mm3 (3.80-5.20); White Blood Cell Count 8.61 K/mm3 (4.00-11.30)
[2022-04-04 16:37] LABS: Albumin, Blood 3.2 g/dL (3.4-5.0); Albumin/Globulin Ratio 0.9 (0.8-1.8); Bilirubin, Total 0.6 mg/dL (0.1-1.0); Calcium, Blood 8.6 mg/dL (8.5-10.1); Creatinine, Blood 3.42 mg/dL (0.40-1.00); Globulin, Blood 3.7 g/dL (2.2-4.0); Potassium, Blood 4.1 mmol/L (3.5-5.5); Total Protein, Blood 6.9 g/dL (6.4-8.2)
[2022-04-04 16:45] LABS: Influenza A, PCR NEGATIVE (NEGATIVE); Influenza B, PCR NEGATIVE (NEGATIVE); Resp Syncytial Virus, PCR NEGATIVE (NEGATIVE)
[2022-04-04 16:46] LABS: Mean Platelet Volume 10.3 fL (9.1-12.4); Platelet Count 207 K/mm3 (150-400)
[2022-04-04 16:50] LABS: SARS-Cov-2 (COVID-19) PCR, MMC POSITIVE (NEGATIVE)
== END 2022-04-04 19:48 | disposition home or self-care (01) ==
LOC: ER 14:59
PROVIDERS: Physician Assistant
DX: U07.1 COVID-19 (principal); Z85.118 Personal history of other malignant neoplasm of bronchus and lung; E03.9 Hypothyroidism, unspecified; K21.9 Gastro-esophageal reflux disease without esophagitis; F41.9 Anxiety disorder, unspecified; F32.A Depression, unspecified; I27.20 Pulmonary hypertension, unspecified; Z79.899 Other long term (current) drug therapy
CPT/HCPCS: 0241U; 36415; 71046; 80053; 84145; 85025

== ENCOUNTER → 2022-06-29 | Outpatient (CLI) | payer MEDICARE, OTHER ==
[2022-06-29 15:25] LABS: Bun/Creatinine Ratio 20.1 (12.0-20.0); Calcium, Blood 7.9 mg/dL (8.5-10.1); Creatinine, Blood 3.58 mg/dL (0.40-1.00); Potassium, Blood 4.8 mmol/L (3.5-5.5)
== END | disposition home or self-care (01) ==
LOC: LAB 14:30 → LAB SHORT 14:30
PROVIDERS: Registered Nurse Oncology
DX: C34.90 Malignant neoplasm of unspecified part of unspecified bronchus or lung (principal); E87.5 Hyperkalemia
CPT/HCPCS: 80048

== ENCOUNTER 2022-07-07 01:52 | Day surgery (SDC) | payer MEDICARE, OTHER | END 2022-07-07 16:00 | disposition home or self-care (01) | LOC: ATC 01:52 | DX: C34.82 Malignant neoplasm of overlapping sites of left bronchus and lung (principal); I12.9 Hypertensive chronic kidney disease with stage 1 through stage 4 chronic kidney disease, or unspecified chronic kidney disease; N18.9 Chronic kidney disease, unspecified; E03.9 Hypothyroidism, unspecified; Z79.899 Other long term (current) drug therapy | CPT/HCPCS: 36415; 36430; 86850; 86900; 86901; 86923; J7040; P9016 ==